=== PATIENT | female | born 1950 | race Asian ===

== ENCOUNTER 2020-07-11 17:42 | Observation (INO) | payer MEDICARE, SELFPAY ==
--- NOTE | ~2020-07-11 | MR_ITS ---
EXAMINATION: MR brain/brain stem wo/w con EXAM DATE: 07/12/2020 07:53 INDICATION: Aphasia. TECHNIQUE: Magnetic resonance imaging (MRI) of the brain/brain stem obtained without contrast. Sagit stew T1, axial diffusion, gradient echo (T2*), T1, T2, FLAIR sequences obtained. Patient was then inj ected with 13 cc intravenous Multihance contrast. Axial and coronal postcontrast T1 weighted sequence s obtained. Comparison is made to prior examination from 12/03/2017. FINDINGS: There are no areas of restricted diffusion to suggest acute infarction. There is no acute hemorrhage seen on the T2*, a hemosiderin sensitive sequence. No intraparenchymal brain mass lesion. Punctate old left pontine infarction. There is small old right occipital lobe cortical infarction. There are no extra-axial collections. Flow voids are seen in the cerebral arteries on the T2-weight ed sequences consistent with their expected patency. The orbits are unremarkable. Soft tissue is un remarkable. There are no areas of abnormal enhancement on the postcontrast images. There is no signi ficant interval change. IMPRESSION: 1. No acute intracranial findings. 2. Small old right occipital and punctate old left pontine reactions. Reviewed, dictated and finalized at location A.
--- NOTE | ~2020-07-11 | CT_ITS ---
EXAMINATION: CTA brain carotid DATE: 07/11/2020 19:14 INDICATION: Dizziness, occipital headache, a Mckenna TECHNIQUE: Computed tomographic angiography (CTA) of the head was performed without and with 100 mL O mnipaque-350 intravenous contrast. CTA of the neck was performed with intravenous contrast. The dose- length product was 1549.85 mGy-cm. Maximum intensity projection and volume rendered 3D-reconstruction s were created by the technologist on a separate workstation. Automated exposure control and iterativ e reconstruction technique were employed. COMPARISON: 12/03/2017 FINDINGS: HEAD CTA: There is no acute intraparenchymal hemorrhage. No evidence of mass lesion. No evidence of a cute infarction. There are old infarcts of the right occipital lobe, medial left frontal lobe, and le ft michelle. There is mild periventricular and subcortical hypodensity probably related to small vessel i schemic disease. There is mild prominence of the sulci and ventricles related to cerebral atrophy. In tracranial calcified cerebral atherosclerosis is noted. There are no extra-axial collections. There i s no mass effect or midline shift. The orbits and soft tissues are unremarkable. There is mild mucosa l thickening of the paranasal sinuses. There is no significant stenosis of the basilar artery or posterior cerebral arteries. There is no si gnificant stenosis of the intracranial internal carotid arteries or the anterior or middle cerebral a rteries. The anterior communicating artery and posterior communicating arteries are normal. There is no aneurysm. NECK CTA: There is a 1.6 cm right thyroid nodule.. The submandibular and parotid glands are symmetric . There is no lymphadenopathy. There are no masses identified. The airway is unremarkable. There is m ild cervical spondylosis. The superior mediastinum is unremarkable. There is 0% stenosis of the proximal right internal carotid artery relative to normal distal artery l umen diameter (NASCET criteria). There is 38% stenosis of the proximal left internal carotid artery r elative to normal distal artery lumen diameter. IMPRESSION: 1. Areas of prior infarction in the right occipital lobe, the left frontal lobe, and left michelle withou t acute intracranial abnormality. Normal head CTA. 2. 0% stenosis of the proximal right internal carotid artery relative to normal distal artery lumen d iameter (NASCET criteria). 3. 38% stenosis of the proximal left internal carotid artery relative to normal distal artery lumen d iameter. Reviewed, dictated and finalized at location A. IMPRESSION: 1. Areas of prior infarction in the right occipital lobe, the left frontal lobe , and left michelle without acute intracranial abnormality. Normal head CTA. 2. 0% stenosis of the proximal right internal carotid artery relative to normal distal artery lumen diameter (NASCET criteria). 3. 38% stenosis of the proximal left internal carotid artery relative to normal distal artery lumen diameter.
--- NOTE | ~2020-07-11 | XR_ITS ---
EXAMINATION: XR chest 1V portable INDICATION: Dizziness and slurred speech TECHNIQUE: Portable AP chest at 1830 hours COMPARISON: 12/03/2017 FINDINGS: The lungs are free of acute opacities. There is no pleural effusion or pneumothorax. The ca rdiomediastinal silhouette is normal. IMPRESSION: 1. No acute cardiopulmonary abnormality. Reviewed, dictated and finalized at location A.
[2020-07-11 17:45] VITALS: BP 119/71; PULSE 71; RESP 19; TEMP 36.7; O2SAT 98
[2020-07-11 17:48] LABS: Glucose Point of Care 165 (65-105)
--- NOTE | 2020-07-11 17:54 | ECG_ITS ---
Measurements Intervals [place] Rate: 66 P: 43 WA: 143 QRS: 50 QRSD: 89 T: 44 QT: 408 QTc: 429 Interpretive Statements SINUS RHYTHM Electronically Signed On 07-12-2020 7:47:00 CDT by Jayden Arenas D.O.
--- NOTE | 2020-07-11 18:11 | ED.GENADULT ---
HPI - General Adult General Chief complaint: Dizziness <Kina Mccord MD - Last Filed: 07/12/20 07:04> Stated complaint: dizzy <Kina Mccord MD - Last Filed: 07/12/20 07:04> Time Seen by Provider: 07/11/20 17:59 <Kina Mccord MD - Last Filed: 07/12/20 07:04> Source: patient <Kina Mccord MD - Last Filed: 07/12/20 07:04> Mode of arrival: EMS <Kina Mccord MD - Last Filed: 07/12/20 07:04> Limitations: no limitations <Kina Mccord MD - Last Filed: 07/12/20 07:04> History of Present Illness HPI narrative: This is a 70 year old Brazilian female with history of hypertension and CVA who presents for evaluation of a possible CVA. EMS reported that patient was talking to family and she developed expressive aphasia. Once EMS arrived, patient was not found to have aphasia or any new deficitis. Patient states she does not remember everything. She denies weakness, numbness, tingling, vomiting, chest pain or shortness of breath. She does reports posterior headache that started once the paramedics arrived. She reports some mild dizziness but she denies visual changes or nausea. She takes aspirin daily for her previous stroke. <Kina Mccord MD - Last Filed: 07/12/20 07:04> Related Data Home medications: Home Medications Medication Instructions Recorded Confirmed amlodipine 10 mg tablet 10 mg PO DAILY 03/20/19 07/11/20 atorvastatin 40 mg tablet 40 mg PO HS 03/20/19 07/11/20 escitalopram oxalate 20 mg tablet 10 mg PO DAILY 03/20/19 07/11/20 losartan 100 mg tablet 100 mg PO DAILY 03/20/19 07/11/20 vitamin B complex 1 tablet PO DAILY 03/20/19 07/11/20 zinc 50 mg tablet 50 mg PO DAILY 03/20/19 07/11/20 metoprolol tartrate 25 mg tablet 25 mg PO DAILY 06/12/19 07/11/20 aspirin 325 mg PO DAILY 07/11/20 07/11/20 <Kina Mccord MD - Last Filed: 07/12/20 07:04> Allergies/adverse reactions: Allergies Allergy/AdvReac Type Severity Reaction Status Date / Time No Known Drug Allergies Allergy Unknown Unknown Verified 07/11/20 18:01 SHELLFISH Allergy Unknown TONGUE AND Uncoded 07/11/20 18:01 LIP SWELLING <Kina Mccord MD - Last Filed: 07/12/20 07:04> Review of Systems Review of Systems: All systems reviewed & are unremarkable except as noted in HPI and below <Kina Mccord MD - Last Filed: 07/12/20 07:04> [facility] Past Medical History Medical History: Medical History (Updated 07/12/20 @ 05:18 by Karen Deluca DO) CVA (cerebral vascular accident) Old right occipital infarct 2015, 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, Diastolic dysfunction Echocardiogram April 2016: Impaired diastolic relaxation grade 1, ejection fraction 65-70, left atrial size within upper limits of normal High cholesterol Hypertension Osteoporosis Sleep apnea Has not use CPAP in many years Urge incontinence Vitamin D deficiency <Kina Mccord MD - Last Filed: 07/12/20 07:04> Surgical History Surgical History: Surgical History (Updated 07/12/20 @ 04:53 by Karen Deluca DO) History of bunionectomy Bilateral History of section X3 History of endometrial ablation History of medial meniscus repair of right knee (~08/2015) History of partial knee replacement (03/2016) Right Hx of cholecystectomy Status post trigger finger release Right hand <Kina Mccord MD - Last Filed: 07/12/20 07:04> Family History Family History: Family History (Updated 07/12/20 @ 04:58 by Karen Deluca DO) Father Lung cancer, Onset Age: 52 Mother Brain tumor, Onset Age: 52 Sibling Hypertension <Kina Mccord MD - Last Filed: 07/12/20 07:04> Social History Social History: Social History (Updated 07/12/20 @ 05:00 by Karen Deluca DO) Social History: The patient lives at home with her 2 daughters, son-in-law and grandson. She has been since 2016. She also has a 3rd daughter. Nu
[2020-07-11] MEDS: MECLIZINE HCL 25 MG TABLET PO (18:28)
[2020-07-11] MEDS: ONDANSETRON HCL ODT 4 MG TABLET PO (18:28)
[2020-07-11 18:56] LABS: Estimated Glomerular Filt Rate > 60
[2020-07-11 18:59] LABS: Basophils Absolute Auto 0.1 K/mm3 (0.0-0.1); Basophils Percent Auto 0.8 % (0.2-1.2); Eosinophils Absolute Auto 0.1 K/mm3 (0-0.3); Eosinophils Percent Auto 1.6 % (0-4.4); Hematocrit 37.4 % (37.0-47.0); Hemoglobin 12.6 g/dL (12.0-15.0); Immature Granulocyte Absolute 0.03 K/mm3 (0.00-0.031); Immature Granulocyte Percent A 0.4 % (0-0.5); Lymphocytes Absolute Auto 1.54 K/mm3 (0.9-3.2); Lymphocytes Percent Auto 20.6 % (18.3-44.2); Mean Corpuscular HGB Conc 33.7 g/dl (32-36); Mean Corpuscular Hemoglobin 28.5 pg (26-34); Mean Corpuscular Volume 84.6 fl (80-100); Mean Platelet Volume 10.5 fl (7.4-10.4); Monocytes Absolute Auto 0.6 K/mm3 (0.1-0.6); Monocytes Percent Auto 7.6 % (2.6-8.5); Neutrophils Absolute Auto 5.2 K/mm3 (1.3-6.7); Platelet Count Result 185 k/mm3 (150-375); Red Blood Count 4.42 M/mm3 (4.2-5.4); Red Cell Distribution Width 12.6 % (11.5-14.5); White Blood Count 7.5 K/mm3 (4.5-10.0)
[2020-07-11 19:12] LABS: INR 0.9; Prothrombin Time 12.2 Seconds (11.1-14.7)
[2020-07-11 19:15] LABS: Alanine Aminotransferase 19 U/L (4-35); Albumin Level 4.4 g/dL (3.5-5.1); Alkaline Phosphatase 71 U/L (38-126); Anion Gap 5 mmol/L (8-16); Aspartate Amino Transferase 22 U/L (14-36); Bilirubin,Total 0.5 mg/dL (0.2-1.3); Blood Urea Nitrogen 22 mg/dL (7-17); Calcium 8.9 mg/dL (8.4-10.2); Carbon Dioxide 29 mmol/L (22-30); Chloride 106 mmol/L (98-107); Estimated Glomerular Filt Rate > 60; Glucose 160 mg/dL (65-105); Potassium 4.3 mmol/L (3.4-5.0); Sodium 140 mmol/L (137-145)
[2020-07-11] MEDS: ASPIRIN 81 MG CHEWABLE TABLET 324 MG PO (20:00)
[2020-07-11 20:30] LABS: Add Urine Microscopic? NO; Appearance Urine Clear (Clear); Bilirubin Urine Negative (Negative); Blood Urine Negative (Negative); Color Urine Straw (Yellow); Glucose Urine UA Negative (Negative); Ketones Urine Negative (Negative); Leukocyte Esterase Ur Negative LEU/UL (Negative); Nitrate Urine Negative (Negative); Protein Urine Negative (Negative); Urobilinogen Urine Negative mg/dL (<2.0)
[2020-07-11 20:37] LABS: Specific Grav Ur > 1.060 (1.001-1.035)
[2020-07-11 20:49] VITALS: BP 138/90; PULSE 83; RESP 16; TEMP 36.4; O2SAT 99
[2020-07-11 21:02] VITALS: PULSE 78
--- NOTE | 2020-07-11 21:09 | ADMGEN ---
This patient, Ashley Ham, was admitted to Medical Room [facility]- at 2100. Patient/family oriented to hospital policies and general routines including ID bracelet, bed and alarms, visiting hours, pain management, procedures, bathroom and other care routines, personal items, smoking policy, room service/diet, and visiting hours. Information on how to activate the Rapid Response Team has been discussed. Patient/Family are encouraged to report perceived risks to care and to ask questions if they do not understand what they are told or what they should do.
[2020-07-11 21:13] VITALS: BMI 29.7
[2020-07-11 22:00] VITALS: BP 116/60; PULSE 67; RESP 21; TEMP 36.3; O2SAT 100
--- NOTE | 2020-07-11 23:04 | PM.IMHP ---
H&P: HPI History of Present Illness Date/Time: 07/11/20 23:15 Chief Complaint: Difficulty speaking Narrative: 70-year-old female with a past medical history of hypertension, CVAs and hyperlipidemia who presented to the ER due to neurologic changes. The patient reports that she went outside for her daily walk. When she was headed back towards her house she stops to talk to a neighbor at which time she developed expressive aphasia and was not able to move 1 side of her face. The patient herself does not x-ray remember the event. She reports that her daughter told her that she had these symptoms. She does remember that she was unable to stand up without holding on to the fence. She denies actually feeling dizzy but just was unable to stand up straight. She reports intermittent left occipital headaches that come and go and have been ongoing for years. She did have a mild occipital headache when EMS arrived on scene but she denies any headache at this time. She has been evaluated by Dr. Metzger in the past. The patient has residual right-sided weakness due to a prior CVA. By the time the patient had arrived in the ER her symptoms had resolved except for the headache. The patient reports having overactive bladder infrequent urinary incontinence. She denies any dysuria, hematuria, or fevers. Her last colonoscopy was about 10 years ago and was normal. She denies any hematochezia or melena. Review of Systems Review of Systems: Narrative: 12 systems were reviewed with pertinent positives and negatives per HPI. Except as documented in the HPI, all other systems were reviewed and are negative. 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, Diastolic dysfunction Echocardiogram April 2016: Impaired diastolic relaxation grade 1, ejection fraction 65-70, left atrial size within upper limits of normal High cholesterol Hypertension Osteoporosis Sleep apnea Has not use CPAP in many years Urge incontinence Vitamin D deficiency Surgical History Surgical History (Updated 07/12/20 @ 04:53 by Karen Deluca DO) History of bunionectomy Bilateral History of section X3 History of endometrial ablation History of medial meniscus repair of right knee (~08/2015) History of partial knee replacement (03/2016) Right Hx of cholecystectomy Status post trigger finger release Right hand Family History Family History (Updated 07/12/20 @ 04:58 by Karen Deluca DO) Father Lung cancer, Onset Age: 52 Mother Brain tumor, Onset Age: 52 Sibling Hypertension Social History Social History (Updated 07/12/20 @ 05:00 by Karen Deluca DO) Social History: The patient lives at home with her 2 daughters, son-in-law and grandson. She has been since 2016. She also has a 3rd daughter. Nursing staff reports that the patient ambulates with a walker. The patient smoked 1 or 2 cigarettes a day for about 20 years but quit smoking over 30 years ago. She does not drink alcohol use illicit substances. She has not drove since her 1st stroke in 2017. 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 Primary care physician: Dr. Joseph in [place] Code status: Full code Smoking status: Former smoker Alcohol intake: never Substance use: never Substance use type: does not use Gender identity (if verbalized by the patient): Female Spiritual care concerns: No Meds Home Medications and Allergies Home Medications Medication Instructions Recorded Confirmed Type amlodipine 10 mg tablet 10 mg PO DAILY 03/20/19 07/11/20 History atorvastatin 40 mg tablet 40 mg PO HS 03/20/19 07/11/20 History escitalopram oxalate 20 mg tablet 10 mg PO DAILY 03/20/19 07/11/20 History losartan 100 mg tablet 100 mg PO DAILY 03/20/19
[2020-07-12] VITALS: PULSE 68
--- NOTE | 2020-07-12 | ECHO_ITS ---
Patient Info Name: Ashley Ham Age: 70 years : 1950 Gender: Female Ht: 59 in Wt: 147 lbs BSA: 1.69 m2 HR: 67 bpm BP: 116 / 60 mmHg Heart Rhythm: Sinus Rhythm Technical Quality: Good Exam Date: 07/12/2020 10:56 AM Exam Location: [facility] Pulmonary Exam Room: 251 Patient Status: Inpatient Admit Date: 07/11/2020 Staff Ordering Physician: Karen Deluca DO Senior Financial Accountant: Zeina Metz RDCS Attending Provider: Marv Rainey PA-C Exam Type: CA echo doppler w bubble study Study Info Indications - HX/O CVA /TIA Complete two-dimensional, color flow and Doppler transthoracic echocardiogram is performed with agitated saline. Contrast/Agitated Saline Contrast/Ag. Saline: Agitated Saline Amount: 20.00 ml Administered By: Laurent Aguilar RN Existing IV Access: Yes IV Access Condition: patent with no signs of infiltration Summary 1. Left ventricular systolic function is normal, estimated at 65-70%. 2. There is no increased left ventricular wall thickness. 3. The left ventricular diastolic function is grade I diastolic dysfunction. 4. No intracardiac shunt at atrial level with injection of agitated saline with and without Valsalva. 5. There is no aortic valve stenosis. 6. There is trace mitral valve regurgitation. 7. The mitral valve annulus is mildly calcified. 8. There is trace tricuspid valve regurgitation. 9. No pulmonary hypertension, estimated pulmonary arterial systolic pressure is 24 mmHg. Recommendations * Consider transesophageal echocardiogram if clinically indicated given reported history of TIA/CVA. Left Ventricle Left ventricular chamber dimension is normal. Left ventricular systolic function is normal, estimated at 65-70%. There is no increased left ventricular wall thickness. The left ventricular diastolic function is grade I diastolic dysfunction. Right Ventricle Right ventricular chamber dimension is normal. Right ventricular systolic function is normal. Left Atria Left atrial chamber dimension is normal. Right Atria Right atrial chamber dimension is normal. Atrial Septum No intracardiac shunt at atrial level with injection of agitated saline with and without Valsalva. Aortic Valve The aortic valve is probable trileaflet. There is mild aortic valve sclerosis. There is no aortic valve stenosis. There is no aortic valve regurgitation. Pulmonic Valve The pulmonic valve is not well visualized. There is trace pulmonic regurgitation. Mitral Valve The mitral valve has normal leaflets. There is trace mitral valve regurgitation. The mitral valve annulus is mildly calcified. Tricuspid Valve The tricuspid valve leaflets are normal. There is trace tricuspid valve regurgitation. No pulmonary hypertension, estimated pulmonary arterial systolic pressure is 24 mmHg. Pericardium/Pleural The pericardium appears normal. There is trivial pericardial effusion. Inferior Vena Cava Normal inferior vena cava with >50% collapse upon inspiration consistent with normal right atrial pressure, 5 mmHg. Aorta The aortic root size at the sinus of Valsalva is normal. There is mild aortic atherosclerosis. Left Ventricular Outflow Tract Name Value Normal LVOT 2D
[2020-07-12 04:00] VITALS: PULSE 64
[2020-07-12 05:30] LABS: Basophils Percent Auto 0.6 % (0.2-1.2); Eosinophils Absolute Auto 0.2 K/mm3 (0-0.3); Eosinophils Percent Auto 2.7 % (0-4.4); Hematocrit 37.2 % (37.0-47.0); Hemoglobin 12.3 g/dL (12.0-15.0); Immature Granulocyte Absolute 0.01 K/mm3 (0.00-0.031); Immature Granulocyte Percent A 0.2 % (0-0.5); Lymphocytes Absolute Auto 1.84 K/mm3 (0.9-3.2); Lymphocytes Percent Auto 28.8 % (18.3-44.2); Mean Corpuscular HGB Conc 33.1 g/dl (32-36); Mean Corpuscular Hemoglobin 28.3 pg (26-34); Mean Corpuscular Volume 85.5 fl (80-100); Mean Platelet Volume 10.2 fl (7.4-10.4); Monocytes Absolute Auto 0.5 K/mm3 (0.1-0.6); Monocytes Percent Auto 8.4 % (2.6-8.5); Neutrophils Absolute Auto 3.8 K/mm3 (1.3-6.7); Neutrophils Percent Auto 59.3 % (45.5-73.1); Platelet Count Result 193 k/mm3 (150-375); Red Blood Count 4.35 M/mm3 (4.2-5.4); Red Cell Distribution Width 12.6 % (11.5-14.5); White Blood Count 6.4 K/mm3 (4.5-10.0)
[2020-07-12 05:49] LABS: Anion Gap 4 mmol/L (8-16); Blood Urea Nitrogen 19 mg/dL (7-17); Carbon Dioxide 31 mmol/L (22-30); Chloride 107 mmol/L (98-107); Estimated Glomerular Filt Rate > 60; Glucose 183 mg/dL (65-105); Potassium 3.4 mmol/L (3.4-5.0); Sodium 142 mmol/L (137-145)
[2020-07-12 06:00] VITALS: BP 108/66; PULSE 71; RESP 21; TEMP 36.1; O2SAT 100
[2020-07-12 08:17] VITALS: O2SAT 93
[2020-07-12] MEDS: ASPIRIN 81 MG ENTERIC TABLET PO (09:47)
[2020-07-12] MEDS: LOSARTAN POTASSIUM 100 MG TABLET PO (09:47)
[2020-07-12] MEDS: CLOPIDOGREL BISULFATE 75 MG TABLET PO (09:47)
[2020-07-12] MEDS: amLODIPine BESYLATE 5 MG TABLET 10 MG PO (09:47)
[2020-07-12] MEDS: METOPROLOL TARTRATE 25 MG TABLET PO (09:47)
[2020-07-12] MEDS: ZINC SULFATE 220 MG CAPSULE 50 MG PO (09:47)
[2020-07-12] MEDS: VITAMIN B COMPLEX CAPSULE 1 CAP PO (09:48)
[2020-07-12] MEDS: ESCITALOPRAM OXALATE 10 MG TABLET PO (09:48)
--- NOTE | 2020-07-12 12:53 | WPDNEURCNPN ---
Assessment and Plan Assessment and plan (1) Aphasia: Code(s): R47.01 - Aphasia Status: Acute (2) TIA (transient ischemic attack): Code(s): G45.9 - Transient cerebral ischemic attack, unspecified Status: Acute Additional Plan history of strokes in the past with new symptomatology lasting for short duration MRI suggestive of only small vessel disease would obtain the EEG as an outpatient the medication will be continued as such like to follow in the office after the EEG is done in 3 months Consult date: 07/12/20 Time Seen: 13:00 HPI: Ashley Ham is a 70 year old femaleHas been admitted to the hospital for the complaints of difficulties in his speech. In addition patient has ongoing history of in the past 1. Hyperlipidemia 2. Recurrent strokes. As per the information available at the time of visit to the emergency room she went outside for her daily walk was headed back to worse her house when she stopped talking to her neighbor and developed speech difficulties and was also unable to move her right side of the face she was unable to stand up without holding on to the fans though she was not dizzy but was definitely unable to stand up straight she also gave the history of intermittent left occipital headaches and she complained of mild occipital headache when EMS arrived on scene patient was noted to have residual right-sided weakness due to the previous cerebrovascular accident additionally she complained of overactive bladder and incontinent her past history was consistent with as mentioned before stroke, diastolic dysfunction, hypercholesterolemia, hypertension, osteoporosis, and sleep apnea. Evaluation up until now documented small right occipital punctate and old left pontine infarction but no new lesion . echocardiogram is pending. 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, Diastolic dysfunction Echocardiogram April 2016: Impaired diastolic relaxation grade 1, ejection fraction 65-70, left atrial size within upper limits of normal High cholesterol Hypertension Osteoporosis Sleep apnea Has not use CPAP in many years Urge incontinence Vitamin D deficiency Surgical History Surgical History History of bunionectomy Bilateral History of section X3 History of endometrial ablation History of medial meniscus repair of right knee (~08/2015) History of partial knee replacement (03/2016) Right Hx of cholecystectomy Status post trigger finger release Right hand Family History Family History Father Lung cancer, Onset Age: 52 Mother Brain tumor, Onset Age: 52 Sibling Hypertension Social History Social History Social History: The patient lives at home with her 2 daughters, son-in-law and grandson. She has been since 2016. She also has a 3rd daughter. Nursing staff reports that the patient ambulates with a walker. The patient smoked 1 or 2 cigarettes a day for about 20 years but quit smoking over 30 years ago. She does not drink alcohol use illicit substances. She has not drove since her 1st stroke in 2017. 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 Primary care physician: Dr. Joseph in [place] Code status: Full code Smoking status: Former smoker Alcohol intake: never Substance use: never Substance use type: does not use Gender identity (if verbalized by the patient): Female Spiritual care concerns: No Meds Home Medications and Allergies Home Medications
--- NOTE | 2020-07-12 13:03 | PM.DS ---
DS: Admitting Diagnosis Admitting Diagnosis Admitting Diagnosis: TIA DS: Discharge Diagnosis Discharge Diagnosis (1) TIA (transient ischemic attack): Code(s): G45.9 - Transient cerebral ischemic attack, unspecified Status: Acute Assessment and Plan: TIA symptoms with expressive aphasia and facial asymmetry that have since resolved. MRI shows no acute intracranial findings; small old right occipital and punctate old left pontine reactions noted. Echo results below; no evidence of intra-atrial shunting; mild valvular disease. Discussed with Dr. Metzger (Neurology) who agrees with aspirin 81 mg and Plavix 75 mg daily. Continue aspirin 81 mg and plavix 75 mg daily Continue home satin. F/u with Dr. Metzger as outpatient (2) Left carotid stenosis: Code(s): I65.22 - Occlusion and stenosis of left carotid artery Status: Acute Assessment and Plan: CTA head neck shows 38% stenosis of left carotid. Unable to appreciate bruit on exam today. Continue statin, aspirin, and Plavix as noted above F/u with PCP, possible vascular surgeon referral in future (3) Obstructive sleep apnea: Code(s): G47.33 - Obstructive sleep apnea (adult) (pediatric) Status: Acute Assessment and Plan: She has not worn CPAP in years as she is intolerant to mask Recommended f/u with PCP for possible outpatient sleep study for other mask options (4) Hypertension: Code(s): I10 - Essential (primary) hypertension Status: Acute Assessment and Plan: BP 100s sys continue home amlodipine, losartan, and metoprolol F/u with PCP DS: Summary Hospital Course Reason for hospitalization: TIA, aphasia, facial asymmetry (resolved) Hospital Course: Date of arrival: 07/11/20 Date of discharge: 07/12/20 Patient is a 70-year-old female with a past medical history of hypertension, CVAs and hyperlipidemia who presented to the ER due to neurologic changes including expressive aphasia and facial asymmetry. While in the ED, CTA head/neck showed no acute intracranial process and 38% stenosis of proximal left internal carotid artery. The patient arrived within 2 hours of her last known well, however she was not a candidate for tPA as her symptoms had resolved by the time she arrived in the ER. Patient admitted to the hospitalist service under this setting for further evaluation for possible acute CVA and further management/treatment. Dr. Metzger (Neruology) was consulted from the ED. Please see H&P for further details. After admission, Patient underwent Brain MRI which showed old infarcts seen on CTA head/neck and no acute intracranial findings. Echo performed showed no intracardiac shunt at atrial level, normal EF, and mild valvular disease. Dr. Metzger evaluated patient and recommended EEG as an outpatient and she was started on Plavix 75 mg daily and aspirin 81 mg daily (home aspirin 325 mg daily was discontinued). She was to follow up with Neurology as an outpatient. As above, her symptoms largely resolved by the time she arrived to the ED. Patient and family agreeable and comfortable with plan for discharge. Patient hemodynamically stable and in improved condition for discharge on 07/12 Status at Discharge Overall status at discharge: patient is progressing back to baseline Time Spent with Patient Time attestation: Total time spent providing and/or coordinating discharge services: Time spent: Greater than 30 minutes Exam Narrative: Exam Narrative: General: Patient sitting on side of bed in no acute distress. Finishing lunch. Daughter in room at time of visit HEENT: Normocephalic, EOMI, oral mucosa moist, PERRLA Cardiovascular: Rate and rhythm are regular. No notable murmur, rub, or gallop. Respiratory: Lungs clear to aus
[2020-07-12 14:05] VITALS: BP 110/60; PULSE 64; RESP 16; TEMP 36.1; O2SAT 99
== END 2020-07-12 16:00 | disposition home or self-care (01) ==
LOC: ANHED 20:17 → ANH2MED 20:19
PROVIDERS: Emergency Medicine; General Practice; Admitting Provider Internal Medicine; Emergency Provider Emergency Medicine; PCP Internal Medicine; Visit Provider Internal Medicine
DX: G45.9 Transient cerebral ischemic attack, unspecified (principal); R47.01 Aphasia; I69.351 Hemiplegia and hemiparesis following cerebral infarction affecting right dominant side; E78.5 Hyperlipidemia, unspecified; G47.33 Obstructive sleep apnea (adult) (pediatric); I10 Essential (primary) hypertension; Z87.891 Personal history of nicotine dependence
CPT/HCPCS: 36415; 70496; 70498; 70553; 71045; 80048; 80053; 81003; 82948; 85025; 85610; 92523; 93005; 93306; 96365; 96375; 97161; 97165; 99285; A9270; A9577; C8929; G0378; J0131; Q9967

== ENCOUNTER 2020-12-05 10:57 | Emergency (ER) | payer MEDICARE, SELFPAY ==
[2020-12-05] VITALS (10 sets, daily range): BP systolic 100–126; BP diastolic 64–81; PULSE 67–79; RESP 15–22; TEMP 35.8–36.6; O2SAT 96–100
--- NOTE | ~2020-12-05 | XR_ITS ---
EXAMINATION: XR knee RT min 4V DATE: 12/05/2020 11:32 INDICATION: Right knee pain TECHNIQUE: Four views of the right knee were obtained. COMPARISON: 06/12/2019 FINDINGS: Alignment is normal. No fracture or osteochondral lesion. Changes of medial compartment art hroplasty are again noted. There is a small joint effusion. Soft tissues are unremarkable. IMPRESSION: 1. No acute osseous abnormality. Reviewed, dictated and finalized at location A.
--- NOTE | ~2020-12-05 | US_ITS ---
EXAMINATION: US venous doppler [facility] EXAM DATE: 12/05/2020 14:33 INDICATION: Left calf pain. TECHNIQUE: Multiple grayscale, color flow and Doppler images of the left lower extremity deep venous system were obtained and reviewed. Comparison is made to prior examination from 05/21/2016. FINDINGS: The left common femoral, femoral and profunda veins demonstrate normal color flow, respirat ory variation, augmentation and compressibility. Compressibility, color flow confirmed within the le ft popliteal, posterior tibial, peroneal, and greater saphenous veins. IMPRESSION: 1. No left lower extremity deep venous thrombosis. Reviewed, dictated and finalized at location B.
--- NOTE | ~2020-12-05 | CT_ITS ---
EXAMINATION: CT brain wo con INDICATION: Head injury COMPARISON: 07/11/2020 TECHNIQUE: Standard unenhanced head CT. The dose-length product (DLP) was 605.33 mGy-cm. The mA was a djusted according to patient size. Iterative reconstruction technique was employed. FINDINGS: There is no acute intraparenchymal hemorrhage. No evidence of mass lesion. No evidence of a cute infarction. There are old infarcts of the right occipital lobe, medial left frontal lobe, and le ft michelle. There is mild periventricular and subcortical hypodensity probably related to small vessel i schemic disease. There is mild prominence of the sulci and ventricles related to cerebral atrophy. In tracranial calcified cerebral atherosclerosis is noted. There are no extra-axial collections. There i s no mass effect or midline shift. The orbits and soft tissues are unremarkable. The visualized sinus es and mastoid air cells are well aerated. IMPRESSION: 1. Areas of prior infarction without acute intracranial abnormality. 2. Age related findings. Reviewed, dictated and finalized at location A.
--- NOTE | ~2020-12-05 | XR_ITS ---
EXAMINATION: XR wrist RT min 3V, XR hand RT min 3V EXAM DATE: 12/05/2020 11:32 INDICATION: fall, deformity Limited range of motion, right wrist, hand pain. Initial encounter. TECHNIQUE: Right hand frontal, lateral and oblique projections obtained and reviewed. Right wrist fro ntal, frontal with ulnar deviation, oblique and lateral projections obtained and reviewed. There is no prior study for comparison. FINDINGS: Acute closed posttraumatic comminuted fracture of the right radial distal metaphysis with a bout 50% posterior displacement and 40 degrees of posterior angulation. Fracture fragments are extend ing into the distal radioulnar joint and the radiocarpal joint. There is acute closed posttraumatic u lnar styloid avulsion fracture. Scaphoid, metacarpal bones and phalanges unremarkable. IMPRESSION: 1. Right radial distal metaphyseal intra-articular fractures. Posterior angulation and displacement. 2. Ulnar styloid avulsion fracture. Reviewed, dictated and finalized at location B. IMPRESSION: 1. Right radial distal metaphyseal intra-articular fractures. Posterior angula tion and displacement. 2. Ulnar styloid avulsion fracture.
--- NOTE | ~2020-12-05 | XR_ITS ---
EXAMINATION: XR wrist RT 2V DATE: 12/05/2020 13:29 INDICATION: Postreduction distal right radial fracture. TECHNIQUE: Posteroanterior and lateral views of the right wrist were obtained. COMPARISON: none FINDINGS: Full reduction and splinting of the previously noted comminuted intra-articular distal right radial f racture. There is decreased dorsal angulation with now 11 degrees dorsal tilt of the distal articular surface. Residual mild radial displacement of the ulnar styloid avulsion fracture. No other fracture s identified. Mild polyarticular osteoarthritis with typical distribution at the radial aspect of the carpus and at multiple interphalangeal joints with distal predominance. IMPRESSION: 1. Decreased dorsal angulation of a comminuted intra-articular fracture of the distal right radius. 2. Mild radial displacement and ulnar styloid avulsion fracture. Reviewed, dictated and finalized at location A.
--- NOTE | 2020-12-05 11:18 | ED.FALL ---
HPI - Fall General Chief Complaint: Fall <Bety Estrada PA-C - Last Filed: 12/05/20 15:29> Stated Complaint: FALL, RIGHT WRIST INJURY <Bety Estrada PA-C - Last Filed: 12/05/20 15:29> Time Seen by Provider: 12/05/20 10:58 <Bety Estrada PA-C - Last Filed: 12/05/20 15:29> Source: patient and EMS <AMIRA Heart Last Filed: 12/05/20 15:29> Mode of arrival: EMS <AMIRA Heart Last Filed: 12/05/20 15:29> Limitations: no limitations <AMIRA Heart Last Filed: 12/05/20 15:29> History of Present Illness HPI Narrative: This is a 70 year old female that presents to the ER via EMS after a fall today with right wrist injury. Reports she has history of deficits from a previous stroke and is supposed to use a walker. She was not using her walker and lost her balance. Reports catching herself with her right wrist. Reports pain and swelling to the area with obvious deformity. Also reports some pain in the right knee. Reports hitting her chin on the floor. Denies loss of consciousness. She is not on any blood thinners. Also reports she has been having some pain in the left calf over the last couple of days. Denies vision changes, vomiting, or new numbness or weakness. <Bety Estrada PA-C - Last Filed: 12/05/20 15:29> Related Data Home Medications: Home Medications Medication Instructions Recorded Confirmed amlodipine 10 mg tablet 10 mg PO DAILY 03/20/19 07/11/20 atorvastatin 40 mg tablet 40 mg PO HS 03/20/19 07/11/20 escitalopram oxalate 20 mg tablet 10 mg PO DAILY 03/20/19 07/11/20 losartan 100 mg tablet 100 mg PO DAILY 03/20/19 07/11/20 vitamin B complex 1 tablet PO DAILY 03/20/19 07/11/20 zinc 50 mg tablet 50 mg PO DAILY 03/20/19 07/11/20 metoprolol tartrate 25 mg tablet 25 mg PO DAILY 06/12/19 07/11/20 <Bety Estrada PA-C - Last Filed: 12/05/20 15:29> Allergies/Adverse Reactions: Allergies Allergy/AdvReac Type Severity Reaction Status Date / Time No Known Drug Allergies Allergy Unknown Unknown Verified 07/11/20 18:01 SHELLFISH Allergy Unknown TONGUE AND Uncoded 07/11/20 18:01 LIP SWELLING <Bety Estrada PA-C - Last Filed: 12/05/20 15:29> Review of Systems Review of Systems: CONSTITUTIONAL: Denies fever EYES: Denies visual changes GASTROINTESTINAL: Denies vomiting MUSCULOSKELETAL: Reports joint pain and myalgia. Denies back pain NEUROLOGIC: Denies headache, or new numbness, or weakness. 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, Diastolic dysfunction Echocardiogram April 2016: Impaired diastolic relaxation grade 1, ejection fraction 65-70, left atrial size within upper limits of normal High cholesterol Hypertension Osteoporosis Sleep apnea Has not use CPAP in many years Urge incontinence Vitamin D deficiency <Bety Estrada PA-C - Last Filed: 12/05/20 15:29> Surgical History Surgical History: Surgical History History of bunionectomy Bilateral History of section X3 History of endometrial ablation History of medial meniscus repair of right knee (~08/2015) History of partial knee replacement (03/2016) Right Hx of cholecystectomy Status post trigger finger release Right hand <Bety Estrada PA-C - Last Filed: 12/05/20 15:29> Family History Family History: Family History Father Lung cancer, Onset Age: 52 Mother Brain tumor, Onset Age: 52 Sibling Hypertension <Bety Estrada PA-C - Last Filed: 0
--- NOTE | 2020-12-05 13:34 | PC.NURSE ---
40mg of Diprivan administered at 1308 via IVP 30mg of Diprivan administered at 1310 via IVP 30mg of Diprivan administered at 1312 via IVP All Diprivan administration administered by Dr. Hendricks.
[2020-12-05] MEDS: SODIUM CHLORIDE 0.9% IV 1,000 ML 999 ML (13:36)
[2020-12-05] MEDS: MORPHINE SULFATE (*CRX) 2 MG/ML INJ IV PUSH (13:39)
== END 2020-12-05 15:44 | disposition home or self-care (01) ==
PROVIDERS: Emergency Provider Emergency Medicine; PCP Internal Medicine
DX: S52.571A Other intraarticular fracture of lower end of right radius, initial encounter for closed fracture (principal); S52.611A Displaced fracture of right ulna styloid process, initial encounter for closed fracture; S09.90XA Unspecified injury of head, initial encounter; M79.662 Pain in left lower leg; I69.951 Hemiplegia and hemiparesis following unspecified cerebrovascular disease affecting right dominant side; E78.00 Pure hypercholesterolemia, unspecified; I10 Essential (primary) hypertension; M81.0 Age-related osteoporosis without current pathological fracture; G47.30 Sleep apnea, unspecified; E55.9 Vitamin D deficiency, unspecified; Z96.651 Presence of right artificial knee joint; Z87.891 Personal history of nicotine dependence; Z79.02 Long term (current) use of antithrombotics/antiplatelets; W18.39XA Other fall on same level, initial encounter
CPT/HCPCS: 25605; 70450; 73100; 73110; 73130; 73564; 93971; 99285; A4565; J2270; J7030

== ENCOUNTER 2020-12-15 01:27 | Day surgery (SDC) | payer MEDICARE, SELFPAY ==
[2020-12-12 10:18] VITALS: BMI 28.3
--- NOTE | 2020-12-12 15:55 | WPDANESEPPF ---
Anes - Initial Pre Proc Eval Procedure: Operation Date: 12/15/20 09:00 Proposed Procedures p Open Reduction Internal Fixation Right Distal Radius - Michael Hickman MD Date/Time: 12/12/20 15:55 Surgeon: Michael Hickman MD Pre Op Diagnosis: Right Distal Radius Fracture Patient Data Age: 70 Gender: F Height: 1.52 m Weight: 65.8 kg Allergies Allergy/AdvReac Type Severity Reaction Status Date / Time Iodine and Iodide Containing Allergy Severe Swelling Verified 12/15/20 07:48 Produc of Lip/Tongue/Throat shellfish derived Allergy Severe Swelling Verified 12/15/20 07:48 of Lip/Tongue/Throat Home Medications Medication Instructions Recorded Confirmed Type amlodipine 10 mg tablet 10 mg PO DAILY 03/20/19 12/15/20 History atorvastatin 40 mg tablet 40 mg PO QAM 03/20/19 12/12/20 History losartan 100 mg tablet 100 mg PO QPM 03/20/19 12/15/20 History vitamin B complex 1 tablet PO DAILY 03/20/19 12/12/20 History zinc 50 mg tablet 50 mg PO DAILY 03/20/19 12/12/20 History metoprolol tartrate 25 mg tablet 25 mg PO QPM 06/12/19 12/15/20 History clopidogrel 75 mg PO QAM #30 tablet 07/12/20 12/15/20 Rx hydrocodone-acetaminophen 1 tablet PO Q8H PRN #14 tablet 12/05/20 12/15/20 Rx acetaminophen [Tylenol Extra 1,000 mg PO Q6H PRN 12/12/20 12/12/20 History Strength] aspirin 81 mg PO QPM 12/12/20 12/15/20 History citalopram 40 mg PO QAM 12/12/20 12/15/20 History melatonin 5 mg PO HS PRN 12/12/20 12/12/20 History pantoprazole 40 mg PO QAM 12/12/20 12/12/20 History Patient hx anesthesia problems: none Family hx anesthesia problems: none PMFSH Past Medical History Medical History (Updated 12/15/20 @ 08:26 by Maximilian Garza DO) CVA (cerebral vascular accident) Old right occipital infarct 2015, 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, Right sided weakness Diastolic dysfunction Echocardiogram April 2016: Impaired diastolic relaxation grade 1, ejection fraction 65-70, left atrial size within upper limits of normal High cholesterol History of TMJ disorder Hypertension Osteoporosis Sleep apnea Has not use CPAP in many years TIA (transient ischemic attack) 07/23 Urge incontinence Vitamin D deficiency Surgical History Surgical History History of bunionectomy Bilateral History of section X3 History of endometrial ablation History of medial meniscus repair of right knee (~08/2015) History of partial knee replacement (03/2016) Right Hx of cholecystectomy Status post trigger finger release Right hand Family History Family History Father Lung cancer, Onset Age: 52 Mother Brain tumor, Onset Age: 52 Sibling Hypertension Social History Social History Social History: The patient lives at home with her 2 daughters, son-in-law and grandson. She has been since 2016. She also has a 3rd daughter. Nursing staff reports that the patient ambulates with a walker. The patient smoked 1 or 2 cigarettes a day for about 20 years but quit smoking over 30 years ago. She does not drink alcohol use illicit substances. She has not drove since her 1st stroke in 2017. 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 Primary care physician: Dr. Joseph in [place] Code status: Full code Smoking status: Never smoker Alcohol intake: never Alcohol use details: Socially Substance use: never Substance use type: does not use Living arrangements: with family Gender identity (if verbalized by the patient): Female Spiritual care concerns: No Anes - Eval Final PreProcedure Day of Procedure 12/12/20 15:55 Patient weight: overweight Heart: regular rate and rhythm Lungs: clear to auscultation and normal air movement Airway: Mallampati scale class III and other (TMJ - ja
--- NOTE | 2020-12-12 15:56 | WPDANESPNB ---
Anes - Peripheral Nerve Block Date/Time: 12/12/20 15:56 I have discussed with the patient/family/POA the placement of a peripheral nerve block for post-operative pain management, including associated risks, benefits, complications, and side effects. Alternative methods of post-operative analgesia were detailed. Questions were solicited and answers provided to the satisfaction of the patient/family/POA. Time-Out: A pre-procedural Time-Out was completed immediately before starting the procedure and confirmed: Patient Identification, Site, Procedure, Patient Position and the Availability of Requisite Equipment. Clinical Indications: Acute post-operative pain management requested by the operative surgeon. Nerve Block Insertion Note Anes-nerve block: supraclavicular Patient position: supine Skin prep: chlorhexidine Needle: 22 gauge, stimulating, insulated echogenic needle. Needle length: 50 mm Technique: ultrasound Injectate: bupivacaine 0.5% with epi 5 mcg/ml (30cc- no epi) Observations: tolerated well Complications: none
[2020-12-15] VITALS (10 sets, daily range): BP systolic 130–155; BP diastolic 60–88; PULSE 82–93; RESP 12–20; TEMP 36.1–36.9; O2SAT 92–98
--- NOTE | ~2020-12-15 | XR_ITS ---
EXAMINATION: XR surgery orthopedic DATE: 12/15/2020 10:21 INDICATION: ORIF distal right radial fracture TECHNIQUE: 2 fluoroscopic images of the right wrist were obtained during procedure performed by Dr. Levi nuno. Radiologist was not present for the imaging or procedure. The amount of fluoroscopy time used du ring this procedure was 2.4 minutes. COMPARISON: 12/05/2020 FINDINGS: Interval reduction and volar T plate and screw internal fixation of a comminuted intra-articular frac ture of the distal right radius. Alignment post reduction appears essentially anatomic with no discer nible fracture gap or incongruity at the articular surface. Minimal displacement unfixed avulsion fra cture across the base of the ulnar styloid process. The scapholunate angle appears increased suggesti ng possible tear of the scapholunate ligament with dorsal intercalated segment instability (DISI) alt michael positioning on the lateral projection is suboptimal for diagnostic assessment. Mild polyarticul ar osteoarthritis at the distal radioulnar, wrist, triscaphe and first carpal metacarpal joints. IMPRESSION: 1. Near-anatomic alignment post reduction and internal fixation of a comminuted intra-articular fract ure of the distal right radius. 2. Minimal displacement of an unfixed avulsion fracture of the ulnar styloid process. 3. Increased scapholunate angle suggesting scapholunate ligament insufficiency although positioning o n the lateral projection is suboptimal which decreases specificity. Reviewed, dictated and finalized at location A. IMPRESSION: 1. Near-anatomic alignment post reduction and internal fixation of a comminuted intra-articular fracture of the distal right radius. 2. Minimal displacement of an unfixed avulsion fracture of the ulnar styloid pr ocess. 3. Increased scapholunate angle suggesting scapholunate ligament insufficiency although positioning on the lateral projection is suboptimal which decreases sp ecificity.
[2020-12-15] MEDS: ACETAMINOPHEN 500 MG TABLET 1000 MG PO (08:03)
[2020-12-15] MEDS: LACTATED RINGERS 1,000 ML 30 ML IV CONT (08:20)
--- NOTE | 2020-12-15 08:24 | WPDHPUPDATE1 ---
History and Physical Update Update Date/Time: 12/15/20 08:24 History and Physical has been reviewed, including an updated exam of the patient. There are NO changes in the patient's condition. Risks, benefits, and alternatives have been discussed and questions answered. Patient agrees to proceed with procedure.
--- NOTE | 2020-12-15 08:25 | SUR.PREOP ---
0800- PER DR. TSE, UNWRAP RIGHT ARM AND WIPE WITH TYSHAWN WIPE IN PRE OP.
[2020-12-15] MEDS: KETOROLAC 15 MG/ML VIAL (*BKC) IV PUSH (08:27)
--- NOTE | 2020-12-15 08:34 | WPDHPUPDATE1 ---
History and Physical Update Update Date/Time: 12/15/20 08:34 History and Physical has been reviewed, including an updated exam of the patient. There are NO changes in the patient's condition. Risks, benefits, and alternatives have been discussed and questions answered. Patient agrees to proceed with procedure.
[2020-12-15] MEDS: ceFAZolin 2 GM/D5W 50 ML 2 GM/50 ML BAG IVPB (08:50)
--- NOTE | 2020-12-15 10:28 | P.OP_ITS ---
Procedure Note - Detailed Date of Procedure 12/15/20 Pre-op Diagnosis Right Distal Radius Fracture Post-op Diagnosis same Procedure Performed ORIF right distal radius Surgeon Michael Hickman MD [employer] [facility] [place] Anesthesia general Indications See H&P Description of Procedure The patient was identified and the proper side identified. She was taken back to the operating room, transferred to the or table positioning supine taking care to pad her torso and extremities. After general anesthetic induction and intubation, a nonsterile tourniquet was placed high on the right arm which was prepped and draped in the usual sterile fashion. The extremity was exsanguinated and tourniquet inflated to 250 mmHg remaining up for approximately 42 minutes. A volar longitudinal incision was made along the FCR tendon distally. The subcutaneous tissue was sharply dissected protecting neurovascular structures. The FCR tendon was released from its sheath and retracted ulnarly. This allowed for the deep fascia of the forearm to be divide d longitudinally in line with the incision. Care was taken to protect the volar compartment structures as well as the radial nerve and radial vascular structures. The pronator quadratus was elevated off of the distal radius allowing for inspection of the fracture site. The fracture fragments were disimpacted and able to be realigned virtually anatomically with fluoroscopic assistance. They were secured in this position with a right, short, narrow plate from the DVR set. The plate was applied with fluoroscopic visualization to avoid penetration of the joint and to ensure optimal hardware placement. Once the plate was secure the overall construct was assessed fluoroscopically on the AP and lateral views. The virtually anatomic reduction was held very nicely. The construct was stable. The wound was irrigated with a copious amount of sterile antibiotic solution. Skin edges were reapproximated with 2-0 Stratafix and tissue adhesive for the skin. Sterile dressing was applied. Siddhartha rniquet was released. A well-padded short-arm volar wrist splint was fashioned. The procedure was well tolerated. There were no known intraoperative complications. Estimated blood loss was negligible. Estimated Blood Loss 2 Tourniquet Time 42 Drains No Packing No Pathology none sent Complications No immediate complications Condition stable Disposition PACU
[2020-12-15] MEDS: oxyCODONE HCL (*CRX) 5 MG TAB IR PO (12:11)
== END 2020-12-15 13:02 | disposition home or self-care (01) ==
PROVIDERS: PCP Internal Medicine; Visit Provider Orthopaedic Surgery
PROC: (CPT 25575; principal; 2020-12-15 09:00)
DX: S52.571A Other intraarticular fracture of lower end of right radius, initial encounter for closed fracture (principal); W01.0XXA Fall on same level from slipping, tripping and stumbling without subsequent striking against object, initial encounter; I11.9 Hypertensive heart disease without heart failure; E78.00 Pure hypercholesterolemia, unspecified; G47.30 Sleep apnea, unspecified; M81.0 Age-related osteoporosis without current pathological fracture; E55.9 Vitamin D deficiency, unspecified; Z86.73 Personal history of transient ischemic attack (TIA), and cerebral infarction without residual deficits; Z79.82 Long term (current) use of aspirin
CPT/HCPCS: 25608; A9270; C1713; J0690; J1100; J1170; J1885; J2250; J2405; J2704; J3010; J7120

== ENCOUNTER 2021-03-02 11:00 | Outpatient (RCR) | payer MEDICARE, SELFPAY ==
--- NOTE | 2021-01-23 11:28 | PTOPEVAL ---
PHYSICAL THERAPY EVALUATION AND PLAN OF CARE 01-23-21 Thank you for referring Ashley Ham to [facility].? She is scheduled to be seen for therapy? 1 x/week for 4 weeks. Please review, sign, date and return this plan of care RICKY. I agree with and certify that the following plan of care is medically necessary. Referring Physician Date Attending Provider: Michael Hickman MD PT Outpatient Evaluation Start: 01/23/21 10:34 Past Medical History Source of Past Medical History Recalled from Previous Visit, Confirmed with Patient/Family Neurological History Hx Cerebrovascular Accident (CVA) Yes: 2017 HAS SLIGHT WEAKNESS RT SIDE Hx Transient Ischemic Attacks (TIA) Yes: 07/11/20 Cardiovascular History Hx Hypercholesterolemia Yes: meds Hx Hypertension Yes: meds Respiratory History Hx Sleep Apnea Yes: DOES NOT USE CPAP.CAN'T TOLERATE Gastrointestinal History Hx Cholecystectomy Yes Hx Gastroesophageal Reflux Disease Yes Genitourinary History Hx Other Genitourinary Disorders Yes: overactive bladder Musculoskeletal History Hx Arthritis Yes: GENERALIZED Hx Crutches or Walker Use Yes: BOTH Query Text:If Yes, Enter Crutches, Walker, or Both in the Comment Hx Joint Replacement Yes: RT PARTIAL KNEE REPLACEMENT Hx Orthopedic Surgery Yes: BILAT BUNIONECTOMY,RT HAND TRIGGER FINGER, RT KNEE SCOPE Hx Other Musculoskeletal Disorders Yes: RT DISTAL RADIUS FX- ORIF , wearing immobilizer on wrist Hematological History Hx Hematological Disorders No Significant History Endocrine History Hx Diabetes Yes: monitoring- may have, need to redo blood work HEENT History Hx HEENT Disorders No Significant History Integumentary History Hx Skin Disorders No Significant History Reproductive History Hx Section Yes: X 3 Hx Post Menopausal Yes Psychosocial History Hx Anxiety Yes Hx Depression Yes Pain History History of Any Previous or Ongoing No Significant History Instance of Pain Anesthesia History Hx Anesthesia Reactions No Significant History Evaluation Information Problem Diagnosis unsteady gait Onset Dec 2020 Subjective Information in Dec, walking and tripped Query Text:As Reported By Patient/ over side walk, fell and Family fractured R wrist; likes to walk, walks around the block 2x, every day; likes to push her grandson in
--- NOTE | 2021-02-03 15:13 | OTOPEVAL ---
OCCUPATIONAL THERAPY INITIAL EVALUATION Thank you for referring Ashley Ham to [facility] [place][Note 2].? The patient is scheduled to be seen for therapy? 1x/week for 4 weeks. Please review, sign, date and return this plan of care RICKY. I agree with and certify that the following plan of care is medically necessary. Referring Physician Date Referring Provider: Michael Hickman MD *OT Outpatient Evaluation Start: 02/03/21 14:32 Therapy Assessment Status Assessment Status Assessment Status Evaluation Outpatient Past Medical History Past Medical History Source of Past Medical History Recalled from Previous Visit, Confirmed with Patient/Family Neurological History Hx Cerebrovascular Accident (CVA) Yes: 2017 HAS SLIGHT WEAKNESS RT SIDE Hx Transient Ischemic Attacks (TIA) Yes: 07/11/20 Cardiovascular History Hx Hypercholesterolemia Yes: meds Hx Hypertension Yes: meds Respiratory History Hx Sleep Apnea Yes: DOES NOT USE CPAP.CAN'T TOLERATE Gastrointestinal History Hx Cholecystectomy Yes Hx Gastroesophageal Reflux Disease Yes Genitourinary History Hx Other Genitourinary Disorders Yes: overactive bladder Musculoskeletal History Hx Arthritis Yes: GENERALIZED Hx Crutches or Walker Use Yes: BOTH Query Text:If Yes, Enter Crutches, Walker, or Both in the Comment Hx Joint Replacement Yes: RT PARTIAL KNEE REPLACEMENT Hx Orthopedic Surgery Yes: BILAT BUNIONECTOMY,RT HAND TRIGGER FINGER, RT KNEE SCOPE Hx Other Musculoskeletal Disorders Yes: RT DISTAL RADIUS FX- ORIF , wearing immobilizer on wrist Hematological History Hx Hematological Disorders No Significant History Endocrine History Hx Diabetes Yes: monitoring- may have, need to redo blood work HEENT History Hx HEENT Disorders No Significant History Integumentary History Hx Skin Disorders No Significant History Reproductive History Hx Section Yes: X 3 Hx Post Menopausal Yes Psychosocial History Hx Anxiety Yes Hx Depression Yes Pain History History of Any Previous or Ongoing No Significant History Instance of Pain Anesthesia History Hx Anesthesia Reactions No Significant History Evaluation Information Problem Diagnosis Right distal radius fracture s/p ORIF Cause Fall Additional Evaluation Detail ORIF: 12/15/20 Subjective Information Patient reports that she has Query Text:As Reported By Patient/ returned to being independent Family
--- NOTE | 2021-03-02 09:26 | OTOPEVAL ---
OCCUPATIONAL THERAPY RE-EVALUATION AND DISCHARGE SUMMARY 03/02/21 OT re-evaluation completed today, 11 weeks post ORIF for right DRF. Patient demonstrating return of ROM and strength in the forearm and wrist with some residual naturopathic oncology provider weakness. She is currently independent with strengthening HEP and is in agreement with discharge. Thank you for referring Ashley Ham to [facility].? Please review, sign, date and return this D/C Note RICKY. I agree with and certify that the following plan of care is medically necessary. Referring Physician Date Referring Provider: Michael Hickman MD *OT Outpatient Evaluation Start: 02/03/21 14:32 Evaluation Information Problem Diagnosis Right distal radius fracture s/p ORIF Onset Dec 2020 Cause Fall Additional Evaluation Detail ORIF: 12/15/20 Subjective Information Patient reports return of Query Text:As Reported By Patient/ functional use of the right Family wrist/hand. 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 She does note some residual difficulties with opening a soda bottle. Pain Assessment Timing of Pain Assessment Timing of Pain Assessment Assessment Pain Scale Pain Scale Used Numeric (1 - 10) Self Report Pain Assessment Right Wrist(s) Reported Pain Level 0 Lowest Pain Intensity 0 Greatest Pain Intensity 5 Pain Aggravating Factors Exercise/Activity Pain Score Pain Score 0: Self Report Upper Extremity Range of Motion Elbow/Forearm Range of Motion Right Forearm Supination - Active 85 Forearm Pronation - Active 85 Elbow/Forearm Range of Motion Comments Elbow flex/ext are WNL. Wrist Range of Motion Right Wrist Flexion - Active 60 Wrist Extension - Active 60 Wrist Radial Deviation - Active 10 Wrist Ulnar Deviation - Active 35 Wrist Range of Motion Comments flexion improved from 50* extension improved from 45* RD/UD remained at 10*/35* respectively Finger Range of Motion Right Reason Not Measured WNL/Right Thumb Range of Motion Right Reason Not Measured WNL/Right Upper Extremity Muscle Strength Testing Elbow/Forearm Right Elbow Flexion Strength 4+ Good + Elbow Extension Strength 4+ Good + Forearm Pronation Strength 4+ Good + Forearm Supination Strength 4+ Good + Wrist Strength Right Wrist Flexion Strength 4+ Good + Wrist Extension Strength 4+ Good + Hand Jd Edwards Developer/Pinch Strength Assessment Hand Left Jd Edwards Developer Strength (lbs) 42 Right Jd Edwards Developer Strength (lbs) 36.67 9-Hole Peg Hand Test Hand
--- NOTE | 2021-03-02 11:40 | PTOPEVAL ---
PHYSICAL THERAPY DISCHARGE 03-02-21 Refer to the clinical summary below for her status today, compared to the initial evaluation. The goals were partially achieved. Discharge PT and to continue with HEP. Thank you for referring Ashley Ham to [facility].? Please review, sign, date and return this Discharge report RICKY. I agree with and certify that the following plan of care is medically necessary. Referring Physician Date Attending Provider: Michael Hickman MD Document 03/02/21 11:10 ELVIS (Rec: 03/02/21 11:40 ELVIS [id number]) Assessment Status Discharge Subjective Information Mrs. Ham reports: have not Query Text:As Reported By Patient/ had any falls, is using the Family cane only when go out and walk distances; is going shopping and zoroastrianism; doing leg exercises, doing everything need to do at home; agrees to discharge from PT. Pain Assessment Timing of Pain Assessment Timing of Pain Assessment Assessment Self Report Self Report Pain Level 0 Pain Score Pain Score 0: Self Report Lower Extremity Muscle Strength Testing General Lower Extremity Strength Gross Lower Extremity Strength functional strength of LE's: - supine SLR R 3# and L 4# x 20 reps; -side lying hip abduction R to 10' x 20 / L to 10' x 20 reps - sitting R ankle circles 20 reps with good control, DF to 5' x 20 reps; Transfer Assessment Floor Transfer Assessment Sit to Floor Transfer Ability Independent Floor to Sit Transfer Ability Independent Cues Needed for Floor Transfer None Balance Assessment Nathan Balance Assessment Sitting to Standing Independent w/out Hands Unsupported Stance Ability Safely- 2 minutes Sitting Unsupported, Feet on Floor Safely- 2 minutes Standing to Sitting Safely, Minimal Hand Use Transfer Ability Safely, Minimal Hand Use Unsupported Stance- Eyes Closed Safely, 10 seconds Unsupported Stance- Feet Together Independent, 1 minute Reaching Forward while Standing Confidently, 10 inches supervisor weaving Object From Floor Independent/Safe Look Behind Shoulder - Standing Shifts Weight Well Turning 360 Degrees Turns Bilateral, < 4 secs Unsupported Stance, Alternating Feet on (I)- 8 Steps in 20 secs Stair Unsupported Tandem Stance Achieves Tandem Unilateral Leg Stance Lifts Leg/Holds > 3 secs NATHAN Balance Evaluation Total Score (/56 54 points) Time Up Go (TUG) Timed Up and Go Test (TUG) (Seconds) 15 Assistive Devices
== END 2021-03-03 11:37 | disposition home or self-care (01) ==
LOC: ANHPT 11:00
PROVIDERS: PCP Internal Medicine; Visit Provider Orthopaedic Surgery
DX: R26.81 Unsteadiness on feet (principal)
CPT/HCPCS: 97018; 97110; 97161; 97165

== ENCOUNTER 2021-09-29 16:35 | Outpatient (CLI) | payer MEDICARE, SELFPAY ==
--- NOTE | ~2021-09-29 | MM_ITS ---
EXAMINATION: MM screening tita BI w alanna HISTORY: Screening TECHNIQUE: Craniocaudal and mediolateral oblique 3-D tomosynthesis images were obtained and synthetic 2-D images were generated. CAD analysis was submitted and interpreted. COMPARISON: Comparison to multiple prior studies sequentially, with oldest reviewed study dated 07/18. BREAST PARENCHYMAL COMPOSITION: The breasts are heterogenously dense, which may obscure small masses FINDINGS: There is no evidence of suspicious mass, calcification, or architectural distortion to sugg est malignancy in either breast. There has been no suspicious interval change. IMPRESSION: 1. No mammographic evidence of malignancy. 2. Recommend routine screening mammography in one year. BI-RADS Category 1: Negative Reviewed, dictated and finalized at location A.
== END 2021-09-29 16:36 | disposition home or self-care (01) ==
LOC: ANHIMG 16:37
PROVIDERS: PCP Internal Medicine; Visit Provider Internal Medicine
DX: Z12.31 Encounter for screening mammogram for malignant neoplasm of breast (principal)
CPT/HCPCS: 77063; 77067

== ENCOUNTER 2021-10-02 14:14 | Outpatient (CLI) | payer MEDICARE, SELFPAY ==
--- NOTE | ~2021-10-02 | MR_ITS ---
EXAMINATION: MR brain/brain stem wo con DATE: 10/02/2021 15:10 INDICATION: Headaches TECHNIQUE: Magnetic resonance imaging (MRI) of the brain and brainstem was performed without intraven ous contrast. Sequences included sagittal and axial T1-weighted SE, axial diffusion-weighted FS SE, a xial T2*-weighted GRE, axial 3D SWAN, axial T2-weighted FLAIR, and axial T2-weighted FSE. Apparent d iffusion coefficient (ADC) maps were created. COMPARISON: Head CT dated 12/05/2020 and brain MR dated 07/12/2020 FINDINGS: Again seen is a small region of encephalomalacia in the right occipital lobe consistent with chronic infarct. Tiny (infarct in the left michelle. There are no areas of restricted diffusion to suggest acute infarction. No intracranial hemorrhage or abnormal intracranial mass lesion. There are scattered area s of nonspecific increased T2-weighted signal intensity in the cerebral white matter, predominantly i nvolving the deep and periventricular white matter which is within normal limits for age. There are n o intraparenchymal signal abnormalities seen on the other pulse sequences. The ventricles are symmetr ic and normal in size. There are no abnormal extra-axial fluid collections. Flow voids are seen in th e cerebral arteries on the T2-weighted sequences consistent with their expected patency. Visualized o rbits and soft tissues are unremarkable. Mild mucosal thickening bilateral ethmoid sinuses with more prominent mucosal thickening the bilateral maxillary sinuses. IMPRESSION: 1. No acute intracranial process. 2. Normal appearance of old small right occipital infarct and old lacunar infarct at the left michelle. Reviewed, dictated and finalized at location A. IMPRESSION: 1. No acute intracranial process. 2. Normal appearance of old small right occipital infarct and old lacunar infar ct at the left michelle.
== END 2021-10-02 14:15 | disposition home or self-care (01) ==
LOC: ANHIMG 14:16
PROVIDERS: PCP Internal Medicine; Visit Provider Internal Medicine
DX: R51.9 Headache, unspecified (principal); Z86.73 Personal history of transient ischemic attack (TIA), and cerebral infarction without residual deficits
CPT/HCPCS: 70551

== ENCOUNTER 2022-02-09 08:01 | Inpatient (IN) | payer MEDICARE, SELFPAY ==
[2022-02-09] VITALS (16 sets, daily range): BP systolic 134–168; BP diastolic 62–77; PULSE 96–119; RESP 18–38; TEMP 37.3–37.8; O2SAT 91–97; BMI 31.4
--- NOTE | ~2022-02-09 | CT_ITS ---
EXAMINATION: CTA chest PE protocol DATE: 02/09/2022 11:15 INDICATION: Shortness of breath. Chest pain. Cough. TECHNIQUE: Computed tomography angiography (CTA) of the chest was performed with 100 mL Omnipaque-350 intravenous contrast timed to evaluate the pulmonary arteries. Coronal maximum intensity projection 3D-reconstructions were created by the technologist. Automated exposure control and iterative reconst ruction technique were employed. The dose-length product was 331.34 mGy-cm. COMPARISON: None. FINDINGS: There is minimal atelectasis in the lungs. No pleural effusion. The heart size is normal. T here are coronary artery calcifications. No pericardial effusion. There is no pulmonary embolus. Ther e is a small sliding hiatal hernia. There is moderate thoracic spondylosis. There is mild chronic ant erior wedging of T7 and T8 vertebral bodies. IMPRESSION: 1. No pulmonary embolus. Sensitivity is moderately decreased by motion artifact. 2. Small sliding hiatal hernia. Reviewed, dictated and finalized at location A. [employer] IMPRESSION: 1. No pulmonary embolus. Sensitivity is moderately decreased by motion artifact . 2. Small sliding hiatal hernia.
--- NOTE | ~2022-02-09 | XR_ITS ---
EXAMINATION: XR chest 2V DATE: 02/09/2022 08:46 INDICATION: Shortness of breath TECHNIQUE: AP and lateral views of the chest are obtained. COMPARISON: 07/11/2020 FINDINGS: The lungs are free of acute opacities. No pleural effusion or pneumothorax. The cardiomedia stinal silhouette is normal. There is moderate thoracic spondylosis. IMPRESSION: 1. No acute cardiopulmonary abnormality. Reviewed, dictated and finalized at location B. ONNEL AND PAYROLL TECHNICIAN
--- NOTE | ~2022-02-09 | US_ITS ---
EXAMINATION: US venous doppler LE RT DATE: 02/10/2022 08:42 INDICATION: Right lower limb pain. TECHNIQUE: Grayscale ultrasound images without and with compression and Doppler ultrasound images of the right lower extremity veins were obtained. COMPARISON: Ultrasound 05/21/2016 FINDINGS: The visualized portions of right common femoral vein, profunda (deep) femoral vein, femoral vein, pop liteal vein, peroneal veins, posterior tibial veins, and greater saphenous vein outflow are patent. IMPRESSION: 1. No deep venous thrombosis. Reviewed, dictated and finalized at location A. ORATE COMMUNICATIONS SPECIALIST
--- NOTE | ~2022-02-09 | XR_ITS ---
EXAMINATION: XR femur RT min 2V INDICATION: Right leg pain TECHNIQUE: Two views of the right femur are obtained on four radiographs. COMPARISON: 12/05/2020 FINDINGS: There are changes of medial compartment arthroplasty in the knee. Bone alignment is normal. There is no fracture. The soft tissues are unremarkable. IMPRESSION: 1. No acute osseous abnormality. Reviewed, dictated and finalized at location B. CLIMBER
--- NOTE | 2022-02-09 08:02 | ECG_ITS ---
Measurements Intervals [place] Rate: 118 P: 73 OR: 158 QRS: 79 QRSD: 84 T: 65 QT: 343 QTc: 482 Interpretive Statements SINUS TACHYCARDIA POSSIBLE RIGHT ATRIAL ENLARGEMENT BORDERLINE ST ABNORMALITY- ANTEROLAT/INF LEADS BASELINE WANDER- V6 ABNORMAL ECG COMPARED TO ECG 07/11/2020 17:55:15 SINUS TACHYCARDIA NOW PRESENT ST (T WAVE) DEVIATION NOW PRESENT Electronically Signed On 02-09-2022 8:54:39 [employer] by Jayden Arenas D.O.
--- NOTE | 2022-02-09 08:06 | ED.SOB ---
HPI - SOB/Dyspnea General Chief Complaint: Shortness of Breath/Dyspnea Stated Complaint: sob wheezing cough Time Seen by Provider: 02/09/22 08:05 Source: patient and family Mode of arrival: ambulatory Limitations: no limitations History of Present Illness HPI Narrative: Patient presents with coughing, shortness of breath and fever started last night. Grand son had history of GI flu. She denies any nausea, vomiting, diarrhea or chest pain. Sometimes chest pain with coughing. History of CVA, diabetes, hypertension, hyperlipidemia with depression Related Data Home Medications Medication Instructions Recorded Confirmed atorvastatin 40 mg tablet 40 mg PO QAM 03/20/19 02/09/22 losartan 100 mg tablet 100 mg PO QPM 03/20/19 02/09/22 vitamin B complex (B 1 tablet PO DAILY 03/20/19 02/09/22 Complex-Vitamin B12 tablet) metoprolol tartrate 25 mg tablet 25 mg PO QPM 06/12/19 02/09/22 acetaminophen 500 mg capsule 1,000 mg PO Q6H PRN Pain 12/12/20 02/09/22 aspirin 81 mg tablet,delayed 81 mg PO USEASDIRECTD 12/12/20 02/09/22 release melatonin 5 mg tablet 5 mg PO HS PRN Insomnia 12/12/20 02/09/22 amlodipine 10 mg tablet 10 mg PO DAILY 02/09/22 02/09/22 cholecalciferol (vitamin D3) 1,250 1,250 mcg PO WEEKLY 02/09/22 02/09/22 mcg (50,000 unit) tablet pantoprazole 40 mg tablet,delayed 40 mg PO DAILY 02/09/22 02/09/22 release Allergies Allergy/AdvReac Type Severity Reaction Status Date / Time shellfish derived Allergy Severe Swelling Verified 02/09/22 12:36 of Lip/Tongue/Throat Review of Systems Review of Systems: All systems reviewed & are unremarkable except as noted in HPI and below PMFSH Past Medical History Medical History (Updated 02/10/22 @ 00:08 by Nivia Deleon PA-C) CVA (cerebral vascular accident) Old right occipital infarct 2015, 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, Right sided weakness Diastolic dysfunction Echocardiogram April 2016: Impaired diastolic relaxation grade 1, ejection fraction 65-70, left atrial size within upper limits of normal High cholesterol History of TMJ disorder Hypertension Osteoporosis Sleep apnea Has not use CPAP in many years TIA (transient ischemic attack) 07/23 Type 2 diabetes mellitus Urge incontinence Vitamin D deficiency Surgical History Surgical History History of bunionectomy Bilateral History of section X3 History of endometrial ablation History of medial meniscus repair of right knee (~08/2015) History of partial knee replacement (03/2016) Right Hx of cholecystectomy Intra-articular fracture of distal end of right radius with volar angulation ORIF December 15, 2020 Status post trigger finger release Right hand Family History Family History Father Lung cancer, Onset Age: 52 Mother Brain tumor, Onset Age: 52 Sibling Hypertension Social History Social History Social History: The patient lives at home with her 2 daughters, son-in-law and grandson. She has been since 2016. She also has a 3rd daughter. Nursing staff reports that the patient ambulates with a walker. The patient smoked 1 or 2 cigarettes a day for about 20 years but quit smoking over 30 years ago. She does not drink alcohol use illicit substances. She has not drove since her 1st stroke in 2017. 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 Primary care physician: Dr. Joseph in [place] Code status: Full code Years smoked: 3 Smoking status: Former smoker Tobacco type: cigarettes Second hand tobacco smoke exposure: Yes Alcohol intake: current Alcohol use details: Socially Substance use: never Substance use type: does not use Other substance usage details: ALCOHOL ON SPECIAL OCCASSIONS Lack of Transportation: No
[2022-02-09 08:34] LABS: Alveolar/Arterial O2 Gradient 55.8 mmHg; Base Excess ABG -0.4 mEq/l (+/-2.0); Fractional Inspired Oxygen 21 %; HCO3 ABG 23.2 mEq/l (22.0-26.0); Oxygen Content ABG 17.4 %vol (16.0-22.0); Oxygen Saturation ABG 88.3 % (95.0-100.0); PO2 FiO2 Ratio Arterial Blood 2.48 %; Total Hemoglobin 14.2 g/dL (12.0-18.0); pH ABG 7.439 (7.350-7.450)
[2022-02-09 08:35] LABS: Basophils Percent Auto 0.4 % (0.2-1.2); Eosinophils Percent Auto 0.1 % (0-4.4); Hemoglobin 14.4 g/dL (12.0-15.0); Immature Granulocyte Absolute 0.04 K/mm3 (0.00-0.031); Immature Granulocyte Percent A 0.4 % (0-0.5); Lymphocytes Percent Auto 7.4 % (18.3-44.2); Mean Corpuscular HGB Conc 32.7 g/dl (32-36); Mean Corpuscular Hemoglobin 28.2 pg (26-34); Mean Corpuscular Volume 86.3 fl (80-100); Mean Platelet Volume 9.9 fl (7.4-10.4); Monocytes Absolute Auto 0.7 K/mm3 (0.1-0.6); Monocytes Percent Auto 6.9 % (2.6-8.5); Neutrophils Percent Auto 84.8 % (45.5-73.1); Platelet Count Result 218 k/mm3 (150-375); Red Cell Distribution Width 12.6 % (11.5-14.5); White Blood Count 9.4 K/mm3 (4.5-10.0)
[2022-02-09 08:36] LABS: Oxyhemoglobin 87.5 % THb (90.0-100.0)
[2022-02-09 08:37] LABS: Device ROOM AIR; Modified Allen's Test Pass; Site Drawn LEFT RADIAL
[2022-02-09 08:39] LABS: Lactic Acid Reflex 1.7 mmol/L (0.7-2.0)
[2022-02-09 08:42] LABS: CRP 1.3 mg/dL (<1.0); Partial Thromboplastin Time 29.8 SECONDS (22.3-36.8); Prothrombin Time 12.8 Seconds (11.1-14.7)
[2022-02-09 09:08] LABS: Basophils Absolute Auto 0.1 K/mm3 (0.0-0.1); Basophils Percent Auto 0.6 % (0.2-1.2); Eosinophils Percent Auto 0.1 % (0-4.4); Hemoglobin 14.1 g/dL (12.0-15.0); Immature Granulocyte Absolute 0.03 K/mm3 (0.00-0.031); Immature Granulocyte Percent A 0.4 % (0-0.5); Lymphocytes Absolute Auto 0.65 K/mm3 (0.9-3.2); Lymphocytes Percent Auto 7.8 % (18.3-44.2); Mean Corpuscular HGB Conc 32.8 g/dl (32-36); Mean Corpuscular Hemoglobin 28.2 pg (26-34); Mean Platelet Volume 9.7 fl (7.4-10.4); Monocytes Absolute Auto 0.4 K/mm3 (0.1-0.6); Neutrophils Absolute Auto 7.2 K/mm3 (1.3-6.7); Neutrophils Percent Auto 86.1 % (45.5-73.1); Platelet Count Result 198 k/mm3 (150-375); Red Cell Distribution Width 12.6 % (11.5-14.5); White Blood Count 8.4 K/mm3 (4.5-10.0)
[2022-02-09 09:18] LABS: Alanine Aminotransferase 20 U/L (6-35); Albumin Level 4.9 g/dL (3.5-5.1); Alkaline Phosphatase 122 U/L (38-126); Anion Gap 12 mmol/L (8-16); Aspartate Amino Transferase 23 U/L (14-36); Bilirubin,Total 0.8 mg/dL (0.2-1.3); Blood Urea Nitrogen 14 mg/dL (7-17); Carbon Dioxide 23 mmol/L (22-30); Chloride 103 mmol/L (98-107); Estimated Glomerular Filt Rate > 60; Glucose 180 mg/dL (65-110); Potassium 3.6 mmol/L (3.4-5.0); Sodium 138 mmol/L (137-145)
--- NOTE | 2022-02-09 09:25 | PC.NURSE ---
patient missed the cup when trying to provide urine sample.
[2022-02-09 09:44] LABS: Influenza A QL RT-PCR Negative (Negative); Influenza B QL RT-PCR Negative (Negative); RSV RNA, RT-PCR Negative (Negative); SARS-CoV-2 RNA PCR Negative
--- NOTE | 2022-02-09 11:47 | ADMGEN ---
This patient, Ashley Ham, was admitted to [facility] Surg Room 307-01. Patient/family oriented to hospital policies and general routines including ID bracelet, bed and alarms, visiting hours, pain management, procedures, bathroom and other care routines, personal items, smoking policy, room service/diet, and visiting hours. Information on how to activate the Rapid Response Team has been discussed. Patient/Family are encouraged to report perceived risks to care and to ask questions if they do not understand what they are told or what they should do.
[2022-02-09] MEDS: SODIUM CHLORIDE 0.9% IV 1,000 ML 75 ML IV CONT (12:27)
[2022-02-09] MEDS: ALBUTEROL SULFATE NEB 2.5 MG/3 ML INH 5 MG INHALATION (14:50)
--- NOTE | 2022-02-09 22:00 | PM.IMHP ---
H&P: HPI History of Present Illness Date/Time: 02/09/22 22:00 Chief Complaint: Shortness of breath, cough, and fever. Narrative: This is a 72-year-old female with history of stroke, diabetes, hypertension, and hyperlipidemia presented to the emergency department for evaluation of shortness of breath, cough, and fever for a couple of days. None of her family members have had similar symptoms though her grandson had GI symptoms last week. On arrival to the emergency department her temperature was 100?, heart rate was 118, and blood pressure was 157/71. Her labs were really unremarkable aside from a glucose of 180 any mild CRP elevation of 1.3. She tested negative for influenza, RSV, and SARs CoV 2 by PCR. Chest x-ray showed no acute cardiopulmonary abnormality. CTA of the chest showed no evidence of pulmonary embolism though sensitivity was moderately decreased by motion artifact. She has been placed on 2 liters nasal cannula as her ABG was consistent with hypoxemia with a showed a PO2 of 52 and an oxyhemoglobin of 87.5%. She has since been admitted for observation overnight due to ongoing tachycardia and hypoxemia. at the time my evaluation she is resting comfortably and feels a bit better now that her temperature has gone back down. In addition to the nonproductive cough and mild shortness of breath she has had some sinus congestion. She also complains of an aching discomfort in her left leg, mainly in the left thigh. She has not noticed any swelling or redness in the leg and she has not injured herself in any way. Review of Systems Review of Systems: 12 systems were reviewed. She has had a slight headache and sinus congestion. No significant sore throat. She denies chest pain and pleuritic pain. Some nausea but no vomiting. No diarrhea. No dysuria. Except as documented, all other systems were reviewed and are negative. 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, Right sided weakness Diastolic dysfunction Echocardiogram April 2016: Impaired diastolic relaxation grade 1, ejection fraction 65-70, left atrial size within upper limits of normal High cholesterol History of TMJ disorder Hypertension Osteoporosis Sleep apnea Has not use CPAP in many years TIA (transient ischemic attack) 07/23 Type 2 diabetes mellitus Urge incontinence Vitamin D deficiency Surgical History Surgical History History of bunionectomy Bilateral History of section X3 History of endometrial ablation History of medial meniscus repair of right knee (~08/2015) History of partial knee replacement (03/2016) Right Hx of cholecystectomy Intra-articular fracture of distal end of right radius with volar angulation ORIF December 15, 2020 Status post trigger finger release Right hand Family History Family History Father Lung cancer, Onset Age: 52 Mother Brain tumor, Onset Age: 52 Sibling Hypertension Social History Social History Social History: The patient lives at home with her 2 daughters, son-in-law and grandson. She has been since 2016. She also has a 3rd daughter. Nursing staff reports that the patient ambulates with a walker. The patient smoked 1 or 2 cigarettes a day for about 20 years but quit smoking over 30 years ago. She does not drink alcohol use illicit substances. She has not drove since her 1st stroke in 2017. 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 Primary care physician: Dr. Joseph in [place] Code status: Full code Years smoked: 3 Smoking status: Former smoker Tobacco type: cigarettes Second hand tobacco smoke exposure:
--- NOTE | 2022-02-09 23:02 | PCRCNOTE ---
Window of time for administration has passed. See next scheduled administration.
--- NOTE | 2022-02-09 23:23 | PC.NURSE ---
Pt sleeping during shift. Pt has some expiratory wheezing on auscultation. Pt has no reports of pain and verbalizes no needs at this time. Pt participated and contributed in plan of care for the shift. Will continue to monitor pt.
[2022-02-10] VITALS (9 sets, daily range): BP systolic 109–136; BP diastolic 60–67; PULSE 76–99; RESP 16–20; TEMP 36.8–37.3; O2SAT 92–98
[2022-02-10 01:46] LABS: Thyroid Stimulating Hormone Reflex 0.607 uIU/mL (0.465-4.68)
[2022-02-10 01:52] LABS: Appearance Urine Clear (Clear); Bilirubin Urine Negative (Negative); Blood Urine Trace-intact (Negative); Color Urine Yellow (Yellow); Glucose Urine UA Negative (Negative); Ketones Urine 1+ mg/dL (Negative); Leukocyte Esterase Ur Negative LEU/UL (Negative); Nitrate Urine Negative (Negative); Protein Urine 2+ mg/dL (Negative); Specific Grav Ur 1.025 (1.001-1.035); pH Urine 6.5 (5.0-9.0)
[2022-02-10 01:56] LABS: Bacteria Urine Trace /hpf; Mucus Urine Rare /lpf; Squamous Epithelial Cell Urine Rare /hpf (Few); WBC Urine 0-3 /hpf
[2022-02-10 02:32] LABS: Add Urine Microscopic? YES
[2022-02-10 03:19] LABS: Procalcitonin 0.1 ng/mL
[2022-02-10 06:37] LABS: Anion Gap 10 mmol/L (8-16); Blood Urea Nitrogen 11 mg/dL (7-17); Calcium 8.2 mg/dL (8.4-10.2); Carbon Dioxide 24 mmol/L (22-30); Chloride 104 mmol/L (98-107); Creatine Kinase 232 U/L (30-135); Estimated Glomerular Filt Rate > 60; Glucose 153 mg/dL (65-110); Magnesium 2.1 mg/dL (1.6-2.3); Potassium 3.3 mmol/L (3.4-5.0); Sodium 138 mmol/L (137-145)
[2022-02-10 08:10] LABS: Glucose Point of Care 169 mg/dl (65-105)
[2022-02-10] MEDS: amLODIPine BESYLATE 5 MG TABLET 10 MG PO (09:50)
[2022-02-10] MEDS: ASPIRIN 81 MG ENTERIC TABLET PO (09:50)
[2022-02-10] MEDS: CITALOPRAM HYDROBROMIDE 20 MG TABLET 40 MG PO (09:50)
[2022-02-10] MEDS: VITAMIN B COMPLEX CAPSULE 1 CAP PO (09:50)
[2022-02-10] MEDS: ENOXAPARIN 40 MG/0.4 ML SYRINGE SUB-Q (09:50)
[2022-02-10] MEDS: PANTOPRAZOLE 40 MG TABLET PO (09:50)
[2022-02-10] MEDS: ATORVASTATIN 40 MG TABLET PO (09:50)
[2022-02-10 12:05] LABS: Glucose Point of Care 165 mg/dl (65-105)
--- NOTE | 2022-02-10 12:40 | PM.IMPN ---
Progress Note: A&P Assessment and Plan (1) Upper respiratory infection, viral: Code(s): J06.9 - Acute upper respiratory infection, unspecified Status: Acute (2) Type 2 diabetes mellitus: Code(s): E11.9 - Type 2 diabetes mellitus without complications Status: Acute (3) Hypertension: Code(s): I10 - Essential (primary) hypertension Status: Acute (4) Hypoxemia: Code(s): R09.02 - Hypoxemia Status: Acute (5) Right thigh pain: Code(s): M79.651 - Pain in right thigh Status: Acute (6) Arterial blood gas abnormality: Code(s): R79.81 - Abnormal blood-gas level Status: Acute Plan The patient presented to the emergency department this morning for evaluation of shortness of breath, cough, and fever which started last night. She had a low-grade temperature on arrival and she has been mildly tachycardic since that time. Workup in the ER was pretty unremarkable with regards to her labs and chest x-ray and CT of the chest did not show any acute findings. ABG demonstrate hypoxemia and she has been placed on 2 liters nasal cannula with improvement in her shortness of breath. Oxygen will be weaned as tolerated. While her chest CTA did not show any obvious pulmonary embolism, it was moderately limited by respiratory motion artifact however PE seems less likely. She does complain of pain in her right thigh thus will obtain right lower extremity venous Doppler ultrasounds to rule out DVT. Pt is negative for influenza, RSV, and SARS-CoV-2 by PCR. Continue supportive care today with Oxygen prn, and breathing treatments I will add short course of steroids hopeful DC tomorrow Subjective Date/time seen: 02/10/22 12:40 72-year-old female with history of stroke, diabetes, hypertension, and hyperlipidemia presented to the emergency department for evaluation of shortness of breath, cough, and fever for a couple of days. None of her family members have had similar symptoms though her grandson had GI symptoms last week. Pt admitted with URI infection pt is very wheezy and has been on breathing treatments and oxygen plan to wean off oxygen and disc hrage tomorrow Review of Systems Review of Systems: Cough wheeze Exam Narrative: General: [place] lady with mild cough friendly pleasant Respiratory: Bilateral wheezy lungs . Cardiovascular: NSR Gastrointestinal: Abdomen is soft, nontender, and nondistended with positive bowel sounds. Extremities: No cyanosis, clubbing, or edema. Radial and pedal pulses intact. Musculoskeletal: No pain with active or passive range of motion of the right hip or knee. She has tenderness to palpation diffusely over the right mid anterior thigh. There is no palpable abnormality or visual abnormality. No knots or cords. Neurological: Alert. Cranial nerves 2-12 are grossly intact. Speech is clear. No facial asymmetry. No gross focal deficits to casual conversation. Psychiatric: Pleasant and cooperative with normal mood and affect. Objective Data Vital Signs Vital Signs: Vital Signs - 24 hr 02/09/22 14:00 02/09/22 14:51 02/09/22 14:51 Temperature 37.3 C Pulse Rate 101 H 100 Respiratory Rate 20 18 Blood Pressure 168/64 H Pulse Oximetry 96 95 Oxygen Delivery Nasal Cannula Oxygen Flow Rate 2 02/09/22 15:03 02/09/22 16:00 02/09/22 21:45 Temperature 37.4 C Pulse Rate 96 107 H 98 Respiratory Rate 18 20 Blood Pressure 134/62 Pulse Oximetry 97 Oxygen Delivery Oxygen Flow Rate 02/09/22 20:03 02/10/22 00:03 02/10/22 04:03 Temperature Pulse Rate 101 H 99 95 Respiratory Rate Blood Pressure Pulse Oximetry Oxygen Delivery Oxygen Flow Rate 02/10/22 05:43 Temperature 37.3 C Pulse Rate 91 Respiratory Rate 16 Blood Pressure 136/67 Pulse Oximetry 98 Oxygen Delivery Oxygen Flow Rate Intake/Output Intake/Output: Intake & Output 02/07/22 02/08/22 02/09/22 02/10/22 23:59 23:59 2
--- NOTE | 2022-02-10 13:37 | P.CDI_ITS ---
CDI Query Clarified Diagnosis Clarified Diagnosis: Clarification request Acute Respiratory failure with hypoxia Patient presents to Emergency room with shortness of breath, cough and PO2 noted on ABG < 60 at 52. Wheezing documented by Emergency room and nursing. RR documented as > 20, tachypnea. Patient currently receiving Medrol dosepak. DuoN eb ordered as needed. Please clarify status of Acute Respiratory Failure with hypoxia: * Present upon admission * Not present upon admission * Unable to determine.
[2022-02-10] MEDS: methylPREDNISolone (MEDROL) DOSEPACK 4 MG TABLETS PO ×4 (16:49→20:44)
[2022-02-10 16:54] LABS: Glucose Point of Care 136 mg/dl (65-105)
[2022-02-10 19:51] LABS: Glucose Point of Care 245 mg/dl (65-105)
[2022-02-10] MEDS: INSULIN ASPART (*BKC) 100 UNITS/ML SUB-Q (21:12)
[2022-02-11 00:02] VITALS: PULSE 75
[2022-02-11 04:02] VITALS: PULSE 66
[2022-02-11 06:00] VITALS: BP 121/69; PULSE 72; RESP 20; TEMP 36.4; O2SAT 97
[2022-02-11] MEDS: methylPREDNISolone (MEDROL) DOSEPACK 4 MG TABLETS PO ×2 (06:17→12:54)
--- NOTE | 2022-02-11 06:18 | PC.NURSE ---
Pt resting comfortably for the shift. Pt ambulated with her cane to the bathroom. Pt has no complaints and verbalizes no needs at this time. Will continue to monitor pt.
[2022-02-11 07:48] LABS: Glucose Point of Care 175 mg/dl (65-105)
[2022-02-11 09:00] VITALS: PULSE 73
[2022-02-11] MEDS: ATORVASTATIN 40 MG TABLET PO (09:10)
[2022-02-11] MEDS: ENOXAPARIN 40 MG/0.4 ML SYRINGE SUB-Q (09:11)
[2022-02-11] MEDS: amLODIPine BESYLATE 5 MG TABLET 10 MG PO (09:11)
[2022-02-11] MEDS: VITAMIN B COMPLEX CAPSULE 1 CAP PO (09:11)
[2022-02-11] MEDS: PANTOPRAZOLE 40 MG TABLET PO (09:11)
[2022-02-11] MEDS: POTASSIUM CHLORIDE 20 MEQ PACKET (FOR LIQUID) PO (09:11)
[2022-02-11] MEDS: CITALOPRAM HYDROBROMIDE 20 MG TABLET 40 MG PO (09:12)
--- NOTE | 2022-02-11 11:09 | PM.DS ---
DS: Admitting Diagnosis Discharge Date 02/11/22 Admitting Diagnosis acute bronchitis DS: Summary Hospital Course Hospital Course: This is a 72-year-old female with history of stroke, diabetes, hypertension, and hyperlipidemia presented to the emergency department for evaluation of shortness of breath, cough, and fever for a couple of days. On arrival to the emergency department her temperature was 100?, heart rate was 118, and blood pressure was 157/71. Her labs were really unremarkable aside from a glucose of 180 any mild CRP elevation of 1.3. She tested negative for influenza, RSV, and SARs CoV 2 by PCR. Chest x-ray showed no acute cardiopulmonary abnormality. CTA of the chest showed no evidence of pulmonary embolism though sensitivity was moderately decreased by motion artifact. She has been placed on 2 liters nasal cannula as her ABG was consistent with hypoxemia with a showed a PO2 of 52 and an oxyhemoglobin of 87.5%. she was admitted for acute bronchitis. She was started on nebulizer and steroid Dosepak. At this time she is stable and back to baseline. She has mild wheezing. She is not on oxygen. She is being discharged home with oral steroids for next 2 days. Time Spent with Patient Time attestation: Total time spent providing and/or coordinating discharge services: Exam Narrative: General: [place] lady with mild cough friendly pleasant Respiratory: Bilateral wheezy lungs . Cardiovascular: NSR Gastrointestinal: Abdomen is soft, nontender, and nondistended with positive bowel sounds. Extremities: No cyanosis, clubbing, or edema. Radial and pedal pulses intact. Musculoskeletal: No pain with active or passive range of motion of the right hip or knee. Neurological: Alert. Cranial nerves 2-12 are grossly intact. Speech is clear. No facial asymmetry. Psychiatric: Pleasant and cooperative with normal mood and affect. DS: Data Data Completed and Pending Labs on day of discharge: Labs from last 24 hours 02/11/22 02/10/22 02/10/22 07:31 19:48 16:52 POC Capillary Glucose 175 H 245 H 136 H 02/10/22 11:54 POC Capillary Glucose 165 H Preliminary micro results at discharge 02/09/22 08:59 Blood Culture - Preliminary Blood 02/09/22 08:59 Blood Culture - Preliminary Blood Discharge Plan Discharge Discharging Clinician: Christiano Tran Anticipated Discharge Date/Time: 02/11/22 11:06 Patient Disposition: Home, Self-Care Activity: august shower Diet: heart healthy Patient Instructions: Antibiotic Form, Hypoxia (GEN), Shortness of Breath (DC) Stand Alone Forms: General Discharge Information Follow-up/Referrals: Abran Lopez MD [Primary Care Provider] - Discharge Medications: New methylprednisolone 4 mg Tablets,Dose Pack 4 mg PO 2XD 2 Days Qty: 4 0RF Combivent Respimat 20-100 mcg/actuation mist 1 puff inhalation QID Qty: 4 0RF Rx Instructions: space evenly during waking hours Continued metoprolol tartrate 25 mg tablet 25 mg PO QPM metformin 1,000 mg tablet 1,000 mg PO DAILY Qty: 30 0RF atorvastatin 40 mg tablet 40 mg PO QAM losartan 100 mg tablet 100 mg PO QPM vitamin B complex [B Complex-Vitamin B12] Tablet 1 tablet PO DAILY citalopram 40 mg tablet 40 mg PO QAM Qty: 90 1RF aspirin 81 mg tablet,delayed release (DR/EC) 81 mg PO USEASDIRECTD Rx Instructions: Tuesday, Tuesday, Tuesday melatonin 5 mg Tablet 5 mg PO HS PRN (Reason: Insomnia) acetaminophen 500 mg Capsule 1,000 mg PO Q6H PRN (Reason: Pain) cholecalciferol (vitamin D3) 1,250 mcg (50,000 unit) Tablet 1,250 mcg PO WEEKLY Rx Instructions: Tuesday amlodipine 10 mg tablet 10 mg PO DAILY Rx Instructions: TAKE 1 TABLET BY MOUTH DAILY pantoprazole 40 mg tablet,delayed release (DR/EC) 40 mg PO DAILY Date of admission: 02/09/22 10:51 Primary Care Provider: Abran Lopez
[2022-02-11 12:00] VITALS: PULSE 77
[2022-02-11 12:00] LABS: Glucose Point of Care 188 mg/dl (65-105)
== END 2022-02-11 14:15 | disposition home or self-care (01) | DRG 203 ==
LOC: ANHED 08:35 → ANH3MEDSUR 11:22
PROVIDERS: Physician Assistant; Admitting Provider Chiropractor; Emergency Provider Emergency Medicine; PCP Family Medicine; Visit Provider Hospitalist
DX: J20.9 Acute bronchitis, unspecified (principal); I11.9 Hypertensive heart disease without heart failure; R09.02 Hypoxemia; R79.81 Abnormal blood-gas level; M79.651 Pain in right thigh; E11.9 Type 2 diabetes mellitus without complications; E78.5 Hyperlipidemia, unspecified; M81.0 Age-related osteoporosis without current pathological fracture; E55.9 Vitamin D deficiency, unspecified; G47.30 Sleep apnea, unspecified; Z20.822 Contact with and (suspected) exposure to COVID-19; Z86.73 Personal history of transient ischemic attack (TIA), and cerebral infarction without residual deficits; Z87.891 Personal history of nicotine dependence
CPT/HCPCS: 36415; 36600; 71046; 71275; 73552; 80048; 80053; 81001; 82550; 82805; 82948; 83036; 83605; 83735; 84145; 84443; 85025; 85610; 85730; 86140; 87040; 87502; 87634; 93005; 93971; 94640; 99285; A9270; J1650; J1815; J7030; Q9967; U0003; U0005

== ENCOUNTER 2022-07-13 12:49 | Outpatient (CLI) | payer MEDICARE, SELFPAY ==
[2022-07-13 14:16] LABS: Anion Gap 9 mmol/L (8-16); Blood Urea Nitrogen 18 mg/dL (7-17); Calcium 9.1 mg/dL (8.4-10.2); Carbon Dioxide 28 mmol/L (22-30); Chloride 101 mmol/L (98-107); Estimated Glomerular Filt Rate > 60; Glucose 110 mg/dL (65-110); Potassium 4.1 mmol/L (3.4-5.0); Sodium 138 mmol/L (137-145)
== END 2022-07-13 12:50 | disposition home or self-care (01) ==
LOC: ANHSURGERY 12:53
PROVIDERS: Anesthesiology; PCP Family Medicine; Visit Provider Orthopaedic Surgery
DX: Z01.818 Encounter for other preprocedural examination (principal); E11.9 Type 2 diabetes mellitus without complications
CPT/HCPCS: 36415; 80048

== ENCOUNTER 2022-07-19 00:31 | Day surgery (SDC) | payer MEDICARE, SELFPAY ==
--- NOTE | 2022-07-09 12:27 | PC.NURSE ---
Report to the Outpatient Waiting Room, entrance under the green pavilion located off [facility], at time _1000 on date __07/19/22 . Planned Procedure Time: _1200 . Time changes happen often and if your time is changed the preop area will call you the afternoon before. - You and your visitor will be asked to self-screen and do not enter if you have any COVID symptoms. - A mask is optional within the hospital at this time. Patients may have clear liquids (water, carbonated beverages, clear teas, apple juice) until 3 hours prior to surgery with a maximum of 20 ounces. - No food from midnight until time of surgery - Infants may have breast milk until 4 hours before surgery, infant formula 6 hours prior to surgery. - Children will be allowed to drink immediately following surgery. If applicable, please bring a bottle or sippy cup to assist with drinking. Juice, water, soda, and popsicles are readily available. For infants on formula, please bring formula the day of surgery. Pacifiers are allowed. Take the following medications with a SIP of water the morning of surgery: __AMLODIPINE,CITALOPRAM, DO NOT STOP ANY OF YOUR OTHER PRESCRIPTION MEDICATIONS PRIOR TO SURGERY ?EXCEPT THE FOLLOWING Medications to discontinue per physician __ALL VITAMINS/SUPPLEMENTS 3 DAYS PRE OP.LAST DOSE 07/15/22 Please no make-up, nail singaporean, hairspray, perfume, deodorant, or body powder the day of surgery. No jewelry (including any body piercings) or valuables the day of surgery, leave them at home. Please take a shower or bath the night before, or the morning of, surgery with an antibacterial soap. Wear comfortable, loose fitting clothing. Children are encouraged to wear pajamas. - Jewelry must be removed prior to entering the operating room. Rings and piercings that are not removed may be cut off. - The hospital will not accept responsibility for valuables. - Please leave all valuables, including medications, at home the day of surgery. If you are going home after surgery, a licensed local owner operator truck driver must drive you home. - NO public transportation without another adult if you receive anesthesia. - We recommend that an adult stay with you for 24 hours following discharge. - We also recommend that you do not drive, make important decision, drink alcoholic beverages, or take any drugs that were not prescribed by your health care provider for at least 24 hours after your discharge time. For Pediatric surgeries, we recommend two adults accompany the child home. Follow any additional instructions given to you from your surgeon. If you or anyone in your household have experienced Covid symptoms in the past week, please notify your surgeon or the nurse liaison at the phone number below for possible testing. Telephone instructions given to __Patient and asked if any additional questions and then verbalized understanding. Patient advised to call surgeon office or pre surgery nurse liaison [phone] if any additional questions.
[2022-07-09 12:36] VITALS: BMI 28.5
[2022-07-19] VITALS (7 sets, daily range): BP systolic 80–120; BP diastolic 53–70; PULSE 65–74; RESP 14–20; TEMP 36.4–36.9; O2SAT 94–99
--- NOTE | 2022-07-19 09:08 | WPDANESEPPF ---
Anes - Initial Pre Proc Eval Procedure: Operation Date: 07/19/22 12:00 Proposed Procedures p Left Third Trigger Finger Release - Michael Hickman MD Date/Time: 07/19/22 09:08 Surgeon: Michael Hickman MD Pre Op Diagnosis: left third trigger finger 07/19/22 Patient Data Age: 72 Gender: F Height: 1.52 m Weight: 66.25 kg Allergies Allergy/AdvReac Type Severity Reaction Status Date / Time shellfish derived Allergy Severe Swelling Verified 07/19/22 09:51 of Lip/Tongue/Throat Home Medications Medication Instructions Recorded Confirmed Type acetaminophen 500 mg capsule 1,000 mg PO Q6H PRN Pain 12/12/20 07/09/22 History aspirin 81 mg tablet,delayed 81 mg PO USEASDIRECTD 12/12/20 07/09/22 History release melatonin 5 mg tablet 5 mg PO HS PRN Insomnia 12/12/20 07/09/22 History metformin 1,000 mg tablet 1,000 mg PO DAILY #30 tabs 02/03/22 07/09/22 Rx citalopram 40 mg tablet 40 mg PO QAM #90 tabs 02/05/22 07/09/22 Rx atorvastatin 40 mg tablet 40 mg PO QAM #90 tabs 04/30/22 07/09/22 Rx cholecalciferol (vitamin D3) 1,250 1,250 mcg PO WEEKLY #14 tabs 04/30/22 07/09/22 Rx mcg (50,000 unit) tablet losartan 100 mg tablet 100 mg PO QPM #90 tabs 04/30/22 07/09/22 Rx pantoprazole 40 mg tablet,delayed 40 mg PO DAILY #90 tabs 04/30/22 07/09/22 Rx release metoprolol tartrate 25 mg tablet 25 mg PO QPM #90 tabs 05/04/22 07/09/22 Rx amlodipine 10 mg tablet See Rx Instructions .Route 06/21/22 07/09/22 Rx .COMPLEX #90 tabs ibuprofen 400 mg tablet 400 mg PO Q6H PRN Pain 07/09/22 07/09/22 History Patient hx anesthesia problems: none Family hx anesthesia problems: none Results Review: All pre-operative results and documents have been reviewed as part of the pre-operative evaluation. 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, Right sided weakness Diastolic dysfunction Echocardiogram April 2016: Impaired diastolic relaxation grade 1, ejection fraction 65-70, left atrial size within upper limits of normal High cholesterol History of TMJ disorder Hypertension Osteoporosis Sleep apnea Has not use CPAP in many years TIA (transient ischemic attack) 07/23 Trigger finger, left middle finger Type 2 diabetes mellitus Urge incontinence Vitamin D deficiency Surgical History Surgical History History of bunionectomy Bilateral History of section X3 History of endometrial ablation History of medial meniscus repair of right knee (~08/2015) History of partial knee replacement (03/2016) Right Hx of cholecystectomy Intra-articular fracture of distal end of right radius with volar angulation ORIF December 15, 2020 Status post trigger finger release Right fourth digit 2005 Family History Family History Father Lung cancer, Onset Age: 52 Mother Brain tumor, Onset Age: 52 Sibling Hypertension Social History Social History Social History: The patient lives at home with her 2 daughters, son-in-law and grandson. She has been since 2016. She also has a 3rd daughter. Nursing staff reports that the patient ambulates with a walker. The patient smoked 1 or 2 cigarettes a day for about 20 years but quit smoking over 30 years ago. She does not drink alcohol use illicit substances. She has not drove since her 1st stroke in 2017. 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 Primary care physician: Dr. Joseph in [place] Code status: Full code Smoking status: Never smoker Tobacco type: cigarettes Second hand tobacco smoke exposure: Yes Alcohol intake: current Substance use: never Substance use type: does not use Other substance usage
[2022-07-19] MEDS: ACETAMINOPHEN 500 MG TABLET 1000 MG PO (10:42)
[2022-07-19] MEDS: LACTATED RINGERS 1,000 ML 30 ML IV CONT (10:50)
[2022-07-19] MEDS: KETOROLAC 15 MG/ML VIAL (*BKC) IV PUSH (10:52)
[2022-07-19 10:58] LABS: Glucose Point of Care 126 mg/dl (65-105)
--- NOTE | 2022-07-19 11:29 | WPDHPUPDATE1 ---
History and Physical Update Update Date/Time: 07/19/22 11:29 History and Physical has been reviewed, including an updated exam of the patient. There are NO changes in the patient's condition. Risks, benefits, and alternatives have been discussed and questions answered. Patient agrees to proceed with procedure.
[2022-07-19] MEDS: ceFAZolin 2 GM/D5W 50 ML 2 GM/50 ML BAG IVPB (12:08)
[2022-07-19] MEDS: BUPivacaine HCL 0.25% PF 30 ML VIAL INFILTRATE (12:40)
--- NOTE | 2022-07-19 12:47 | W.PM.PROC2 ---
Procedure Note - Detailed Date of Procedure 07/19/22 Pre-op Diagnosis left third trigger finger 07/19/22 Post-op Diagnosis Same Procedure Performed left third trigger finger release Surgeon Michael Hickman MD Test Engineer [employer] [facility] Anesthesia General Description of Procedure The patient was identified and proper site identified. She was taken to the operating room and transferred to the OR table placing supine taking care to pad the torso and extremities. She underwent general anesthetic induction and intubation. A nonsterile tourniquet was placed high on the Left arm which was prepped and draped in the usual sterile fashion. Several cc of .25 % plain Marcaine was injected into the subcutaneous tissue over the A1 ilya of the left third digit. The extremity was exsanguinated and the tourniquet was inflated to 200 mmHg remaining up for about five minutes. A longitudinal incision was made over the A1 ilya. Subcutaneous tissue was bluntly dissected down to the ilya while protecting the neurovascular bundles. The A1 ilya was identified and then transected longitudinally in line with the incision and tendons. The tendons were delivered into the wound verifying the adequacy of the release. Hemostasis was carried out. The wound was irrigated with sterile saline. Skin edges were reapproximated with 4-0 nylon suture. Sterile dressing was applied. Tourniquet was released. She tolerated the procedure well and was transferred back to a cart, then taken to the recovery area in stable condition. There were no known intraoperative complications. Estimated blood loss was negligible. Perioperative antibiotics were administered. Estimated Blood Loss 0.5 Tourniquet Time 5 Drains No Packing No Pathology None sent Complications No immediate complications Condition Stable Disposition PACU [facility] Billing Surgery - Charge Forward: Surgery Billing ([id number])
[2022-07-19 13:00] LABS: Glucose Point of Care 119 mg/dl (65-105)
== END 2022-07-19 14:33 | disposition home or self-care (01) ==
PROVIDERS: PCP Family Medicine; Visit Provider Orthopaedic Surgery
PROC: (CPT 26055; principal; 2022-07-19 12:00)
DX: M65.332 Trigger finger, left middle finger (principal); I69.354 Hemiplegia and hemiparesis following cerebral infarction affecting left non-dominant side; I11.9 Hypertensive heart disease without heart failure; E55.9 Vitamin D deficiency, unspecified; M81.0 Age-related osteoporosis without current pathological fracture; G47.30 Sleep apnea, unspecified; E78.00 Pure hypercholesterolemia, unspecified; Z87.891 Personal history of nicotine dependence; Z79.84 Long term (current) use of oral hypoglycemic drugs
CPT/HCPCS: 26055; 36415; 80048; 82948; A9270; J0690; J1100; J1885; J2370; J2405; J2704; J3010; J7120

== ENCOUNTER 2023-02-03 11:41 | Outpatient (CLI) | payer MEDICARE, SELFPAY ==
--- NOTE | ~2023-02-03 | CT_ITS ---
EXAMINATION: CT brain wo con DATE: 02/03/2023 12:04 INDICATION: Headache. Dizziness. TECHNIQUE: Computed tomography (CT) of the head was performed without intravenous contrast. The mA wa s adjusted according to patient size. Iterative reconstruction technique was employed. The dose-lengt h product was 605.33 mGy-cm. COMPARISON: Head CT 12/05/2020, brain MRI 10/02/2021 FINDINGS: There is an old infarct in the michelle on the left. There is an old infarct in right occipital lobe. There is no intracranial hemorrhage, acute infarction, or abnormal intracranial mass lesion. T he ventricles are normal in size. There is mucosal thickening in the paranasal sinuses. The mastoid a ir cells are normal. IMPRESSION: 1. Old infarcts in the michelle and right occipital lobe. Reviewed, dictated and finalized at location E.
== END 2023-02-03 11:42 | disposition home or self-care (01) ==
PROVIDERS: PCP Family Medicine; Visit Provider Student in an Organized Health Care Education/Training Program
DX: R51.9 Headache, unspecified (principal); Z86.73 Personal history of transient ischemic attack (TIA), and cerebral infarction without residual deficits
CPT/HCPCS: 70450

== ENCOUNTER 2023-07-04 08:07 | Outpatient (CLI) | payer MEDICARE, SELFPAY ==
--- NOTE | ~2023-07-04 | DEXA_ITS ---
Bone Density Report Name: ROBERTO CARBAJAL Age: 73 Sex: Female Ethnicity: White Date of : 1950 Indication: osteopenia; secondary osteoporosis; Referring Provider: NANCI HOWARD Study: Bone densitometry was performed. Exam Date: July 04, 2023 Accession number: [id number] Bone Density: Region BMD T-score Z-score Classification AP Spine(L1-L4) 0.736 -2.8 -0.5 Osteoporosis Femoral Neck (Left) 0.506 -3.1 -1.1 Osteoporosis Total Hip (Left) 0.688 -2.1 -0.4 Osteopenia Femoral Neck (Right) 0.464 -3.5 -1.5 Osteoporosis Total Hip (Right) 0.581 -3.0 -1.3 Osteoporosis Total Hip Mean 0.635 -2.6 -0.9 Osteoporosis World Health Organization criteria for BMD impression classify patients as: Normal (T-score at or above -1.0), Osteopenia (T-score between -1.0 and -2.5), or Osteoporosis (T-score at or below -2.5). 10-year Fracture Risk: FRAX not reported because: Some T-score for Spine Total or Hip Total or Femoral Neck at or below -2.5 Previous Exams: Region Exam Age BMD T-score BMD Change BMD Change Date g/cm2 vs Baseline vs Previous AP Spine (L1-L4) 07/04/2023 73 0.736 -2.8 -0.060 (-7.6%) -0.060 (-7.6%) 07/19/2015 65 0.796 -2.3 Total Hip(Left) 07/04/2023 73 0.688 -2.1 -0.065 (-8.7%) -0.065 (-8.7%) 07/19/2015 65 0.754 -1.5 Total Hip(Right) 07/04/2023 73 0.581 -3.0 -0.129 (-18.2% -0.129 (-18.2% 07/19/2015 65 0.710 -1.9 *Denotes significance at 95% confidence level, LSC for AP Spine = 0.022 g/cm2, LSC for Total Hip = 0.027 g/cm2 # Denotes dissimilar scan types or analysis methods Clinical Information Provided by Patient: Has secondary osteoporosis Has used the following medications: Vitamin D Patient maximum height was 60 Menopause Age: 26 No regular weight bearing exercise Drinks caffeinated beverages Onset of menses at age 14 Number of children 3 Missed period for more than 6 months in a row Impression: The patient has osteoporosis, based on the Right Femoral Neck T-score. No significant bone loss was observed. Discussion: INCREASED RISK OF FRACTURE. BONE DENSITY IS UNDESIRABLY LOW AT ONE OR MORE SKELETAL SITES, CONSISTENT WITH POSTMENOPAUSAL OSTEOPOROSIS. This patient's lowest T-score meets the World Health Organization's (WHO) criteria for osteoporosis at one or more sites (T-score -2.5 or below). In untreated patients, the risk of osteoporotic fracture increases approximately two-fold for each 1.0 SD decrease in T-s
--- NOTE | ~2023-07-04 | MM_ITS ---
EXAMINATION: MM screening tita BI w alanna HISTORY: Screening TECHNIQUE: Craniocaudal and mediolateral oblique 3-D tomosynthesis images were obtained and synthetic 2-D images were generated. CAD analysis was submitted and interpreted. COMPARISON: Comparison to multiple prior studies sequentially, with oldest reviewed study dated 11/17. BREAST PARENCHYMAL COMPOSITION: Dense: The breasts are heterogeneously dense, which may obscure small masses FINDINGS: There is no evidence of suspicious mass, calcification, or architectural distortion to sugg est malignancy in either breast. There has been no suspicious interval change. IMPRESSION: 1. No mammographic evidence of malignancy. 2. Recommend routine screening mammography in one year. BI-RADS Category 1: Negative Reviewed, dictated and finalized at location A.
== END 2023-07-04 08:08 | disposition home or self-care (01) ==
LOC: ANHIMG 08:09
PROVIDERS: PCP Family Medicine; Visit Provider Physician Assistant
DX: Z12.31 Encounter for screening mammogram for malignant neoplasm of breast (principal); Z78.0 Asymptomatic menopausal state; M81.0 Age-related osteoporosis without current pathological fracture; M85.88 Other specified disorders of bone density and structure, other site
CPT/HCPCS: 77063; 77067; 77080

== ENCOUNTER 2024-02-23 01:10 | Day surgery (SDC) | payer MEDICARE, SELFPAY ==
[2024-02-15 08:28] VITALS: BMI 28.5
[2024-02-23 08:23] VITALS: BP 163/81; PULSE 83; RESP 20; TEMP 36.1; O2SAT 100; BMI 27.9
[2024-02-23] MEDS: LACTATED RINGERS 1,000 ML 150 ML IV CONT (08:38)
[2024-02-23 08:42] LABS: Glucose Point of Care 125 mg/dl (65-105)
--- NOTE | 2024-02-23 08:56 | PM.IMHP ---
H&P: HPI History of Present Illness Date/Time: 02/23/24 08:56 Chief Complaint: Dysphagia Narrative: the patient complains of difficulty swallowing liquids and solids for the past 2 years, lately getting worse over the past 3 months. She denies heartburn, regurgitation, nausea vomiting. Of note, she had a recent stroke after which this problem has become more noticeable but she denies regurgitation of fluid through her nose or cough after drinking liquids. 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, Right sided weakness Diastolic dysfunction Echocardiogram April 2016: Impaired diastolic relaxation grade 1, ejection fraction 65-70, left atrial size within upper limits of normal High cholesterol History of TMJ disorder Hypertension Osteoporosis Sleep apnea Has not use CPAP in many years TIA (transient ischemic attack) 07/23 Type 2 diabetes mellitus Urge incontinence Vitamin D deficiency Surgical History Surgical History History of bunionectomy Bilateral History of section X3 History of endometrial ablation History of medial meniscus repair of right knee (~08/2015) History of partial knee replacement (03/2016) Right Hx of cholecystectomy Intra-articular fracture of distal end of right radius with volar angulation ORIF December 15, 2020 Status post trigger finger release Right fourth digit 2006 Trigger finger, left middle finger Trigger finger release July 19, 2022 Family History Family History Father Lung cancer, Onset Age: 52 Mother Brain tumor, Onset Age: 52 Sibling Hypertension Social History Social History Social History: The patient lives at home with her 2 daughters, son-in-law and grandson. She has been since 2016. She also has a 3rd daughter. Nursing staff reports that the patient ambulates with a walker. The patient smoked 1 or 2 cigarettes a day for about 20 years but quit smoking over 30 years ago. She does not drink alcohol use illicit substances. She has not drove since her 1st stroke in 2017. 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 Primary care physician: Dr. Joseph in [place] Code status: Full code Smoking status: Never smoker Second hand tobacco smoke exposure: Yes Alcohol intake: never Substance use: never Substance use type: does not use Other substance usage details: ALCOHOL ON SPECIAL OCCASSIONS Lack of Transportation: No Lack of Food: Never True Current Housing: Decline to Answer Concerned About Future Housing: Decline to Answer Difficulty Paying Gas/Electric Bills: YES Difficulty Paying for Meds: Decline to Answer Currently Unemployed: No Education: Decline to Answer Difficulty w/ Childcare or Family Care: Decline to Answer Living arrangements: with family Additional living arrangements comments: LIVES WITH DAUGHTER Occupation/Education: retired Gender identity (if verbalized by the patient): Female Sexual Orientation (if Verbalized by the Patient): Straight or Heterosexual Spiritual care concerns: No Meds Home Medications and Allergies Home Medications Medication Instructions Recorded Confirmed Type acetaminophen 500 mg capsule 1,000 mg PO Q6H PRN Pain 12/12/20 02/23/24 History aspirin 81 mg tablet,delayed 81 mg PO USEASDIRECTD 12/12/20 02/23/24 History release ibuprofen 400 mg tablet 400 mg PO Q6H PRN Pain 07/09/22 02/23/24 History metformin 500 mg tablet See Rx Instructions .Route 05/09/23 02/23/24 Rx .COMPLEX #90 tabs citalopram 40 mg tablet 40 mg PO QAM #90 tabs 11/17/23 02/23/24 Rx ibandronate 150 mg tablet 150 mg PO MONTHLY #3 tabs 11/17/23 02/23/24 Rx pantoprazole 40 mg tablet,delayed 40 mg PO DAILY #90 tabs 11/28/23 02/23/24 Rx release losartan 100 mg tablet 100 mg PO QPM #90 tabs 12/20/23 02/23/24 Rx amlodipine 10 mg tablet 10 mg PO DAILY #90 tabs 01/30/24 02/23/24 Rx baclofen 5 mg tablet 5 mg PO BID #60 tabs 02/02/24 02/23/24 Rx rosuvastatin 40 mg tablet 40 mg PO DAILY #90 tabs 02/02/24 02/23/24 Rx cholecalciferol (vitamin D3) 1,250 1,250 mcg PO WEEKLY 02/15/24 02/23/24 History mcg (50,000 unit) capsule metoprolol tartrate 25 mg tablet 12.5 mg PO QPM 02/15/24 02/23/24 History Allergies Allergy/AdvReac Type Severity Reaction Status Date / Time shellfish derived Allergy Severe Swelling Verified 02/23/24 08:21 of Lip/Tongue/Throat Vital Signs Vital Signs - 24 hr 02/23/24 08:23 Temperature 97.0 F L Pulse Rate 83 Respiratory Rate 20 Blood Pressure 163/81 H Pulse Oximetry 100 Oxygen Delivery Room Air Exam Const: General: cooperative and healthy appearing Resp: Effort & Inspection: normal respiratory effort and able to speak in complete sentences Auscultation: clear to auscultation bilaterally Cardio: Rate: regular rate Rhythm: regular rhythm GI: Inspection: normal to inspection GI Palp: No No hepatosplenomegaly present Auscultation: normal bowel sounds Rectal Exam: deferred Skin: General skin exam: normal color Psych: Appearance: grossly normal Mental Status: mental status grossly normal Assessment and Plan Assessment and plan (1) Dysphagia: Code(s): R13.10 - Dysphagia, unspecified Status: Acute Assessment and Plan: Will determine if they are intramucosal obstructive lesions such as rings or webs. Will also take esophageal biopsies to rule out eosinophilic esophagitis. If these are negative, will proceed with high-resolution esophageal manometry.
--- NOTE | 2024-02-23 09:02 | WPDANESEPPF ---
Anes - Initial Pre Proc Eval Procedure: Operation Date: 02/23/24 09:30 Proposed Procedures p Esophagogastroduodenoscopy - Richard Root MD Date/Time: 02/23/24 09:02 Surgeon: Richard Root MD Pre Op Diagnosis: dysphagia, GERD, other symptoms and signs involv Patient Data Age: 74 Gender: F Height: 1.5 m Weight: 62.8 kg Last Vital Signs Temp 97.0 F L 02/23/24 08:23 Pulse 83 02/23/24 08:23 Resp 20 02/23/24 08:23 BP 163/81 H 02/23/24 08:23 Pulse Ox 100 02/23/24 08:23 O2 Del Method Room Air 02/23/24 08:23 Allergies Allergy/AdvReac Type Severity Reaction Status Date / Time shellfish derived Allergy Severe Swelling Verified 02/23/24 08:21 of Lip/Tongue/Throat Home Medications Medication Instructions Recorded Confirmed Type acetaminophen 500 mg capsule 1,000 mg PO Q6H PRN Pain 12/12/20 02/23/24 History aspirin 81 mg tablet,delayed 81 mg PO USEASDIRECTD 12/12/20 02/23/24 History release ibuprofen 400 mg tablet 400 mg PO Q6H PRN Pain 07/09/22 02/23/24 History metformin 500 mg tablet See Rx Instructions .Route 05/09/23 02/23/24 Rx .COMPLEX #90 tabs citalopram 40 mg tablet 40 mg PO QAM #90 tabs 11/17/23 02/23/24 Rx ibandronate 150 mg tablet 150 mg PO MONTHLY #3 tabs 11/17/23 02/23/24 Rx pantoprazole 40 mg tablet,delayed 40 mg PO DAILY #90 tabs 11/28/23 02/23/24 Rx release losartan 100 mg tablet 100 mg PO QPM #90 tabs 12/20/23 02/23/24 Rx amlodipine 10 mg tablet 10 mg PO DAILY #90 tabs 01/30/24 02/23/24 Rx baclofen 5 mg tablet 5 mg PO BID #60 tabs 02/02/24 02/23/24 Rx rosuvastatin 40 mg tablet 40 mg PO DAILY #90 tabs 02/02/24 02/23/24 Rx cholecalciferol (vitamin D3) 1,250 1,250 mcg PO WEEKLY 02/15/24 02/23/24 History mcg (50,000 unit) capsule metoprolol tartrate 25 mg tablet 12.5 mg PO QPM 02/15/24 02/23/24 History Laboratory Tests 02/23/24 08:28 POC Capillary Glucose 125 H mg/dl (65-105) Patient hx anesthesia problems: none Family hx anesthesia problems: none Results Review: All pre-operative results and documents have been reviewed as part of the pre-operative evaluation. 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, Right sided weakness Diastolic dysfunction Echocardiogram April 2016: Impaired diastolic relaxation grade 1, ejection fraction 65-70, left atrial size within upper limits of normal High cholesterol History of TMJ disorder Hypertension Osteoporosis Sleep apnea Has not use CPAP in many years TIA (transient ischemic attack) 07/23 Type 2 diabetes mellitus Urge incontinence Vitamin D deficiency Surgical History Surgical History History of bunionectomy Bilateral History of section X3 History of endometrial ablation History of medial meniscus repair of right knee (~08/2015) History of partial knee replacement (03/2016) Right Hx of cholecystectomy Intra-articular fracture of distal end of right radius with volar angulation ORIF December 15, 2020 Status post trigger finger release Right fourth digit 2006 Trigger finger, left middle finger Trigger finger release July 19, 2022 Family History Family History Father Lung cancer, Onset Age: 52 Mother Brain tumor, Onset Age: 52 Sibling Hypertension Social History Social History Social History: The patient lives at home with her 2 daughters, son-in-law and grandson. She has been since 2015. She also has a 3rd daughter. Nursing staff reports that the patient ambulates with a walker. The patient smoked 1 or 2 cigarettes a day for about 20 years but quit smoking over 30 years ago. She does not drink alcohol use illicit substances. She has not drove since her 1st stroke in 2016. 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 Primary care physician: Dr. Joseph in [place] Code status: Full code Smoking status: Never smoker Second hand tobacco smoke exposure: Yes Alcohol intake: never Substance use: never Substance use type: does not use Other substance usage details: ALCOHOL ON SPECIAL OCCASSIONS Lack of Transportation: No Lack of Food: Never True Current Housing: Decline to Answer Concerned About Future Housing: Decline to Answer Difficulty Paying Gas/Electric Bills: YES Difficulty Paying for Meds: Decline to Answer Currently Unemployed: No Education: Decline to Answer Difficulty w/ Childcare or Family Care: Decline to Answer Living arrangements: with family Additional living arrangements comments: LIVES WITH DAUGHTER Occupation/Education: retired Gender identity (if verbalized by the patient): Female Sexual Orientation (if Verbalized by the Patient): Straight or Heterosexual Spiritual care concerns: No Anes - Eval Final PreProcedure Day of Procedure 02/23/24 09:02 Patient weight: normal Heart: regular rate and rhythm Lungs: clear to auscultation Airway: Mallampati scale class II Neurological: alert and oriented Last oral intake: >/= 8 hours ASA classification: III Emergent: no Anesthetic plan: proceed Anesthesia type and monitoring: general GIVS and standard monitoring Results Review: All pre-operative results and documents have been reviewed as part of the pre-operative evaluation. CVA w r hemiparesis 2017, now w dysphagia. HTN, hyperlipidemia, DM. Informed Consent: The patient's anesthetic plan and its attendant risks and benefits were discussed with the patient/family/POA. Questions were solicited and answers provided to the satisfaction of the patient/family/POA.
[2024-02-23 09:29] VITALS: BP 125/73; PULSE 90; RESP 20; O2SAT 99
[2024-02-23 09:39] VITALS: BP 124/70; PULSE 78; RESP 21; O2SAT 99
[2024-02-23 09:49] VITALS: BP 145/86; PULSE 78; RESP 15; O2SAT 99
== END 2024-02-23 10:15 | disposition home or self-care (01) ==
PROVIDERS: PCP Family Medicine; Referring Provider Physician Assistant; Visit Provider Internal Medicine Gastroenterology
PROC: 0DJ08ZZ Inspection of Upper Intestinal Tract, Via Natural or Artificial Opening Endoscopic (ICD-10-PCS; CPT 43235; principal; 2024-02-23 09:30)
DX: K22.2 Esophageal obstruction (principal); K44.9 Diaphragmatic hernia without obstruction or gangrene; I11.0 Hypertensive heart disease with heart failure; I50.30 Unspecified diastolic (congestive) heart failure; E78.00 Pure hypercholesterolemia, unspecified; E11.9 Type 2 diabetes mellitus without complications; M81.0 Age-related osteoporosis without current pathological fracture; G47.30 Sleep apnea, unspecified; E55.9 Vitamin D deficiency, unspecified; I69.351 Hemiplegia and hemiparesis following cerebral infarction affecting right dominant side; Z79.84 Long term (current) use of oral hypoglycemic drugs
CPT/HCPCS: 43239; 43450; 82948; 88305; J2003; J2704; J7120

== ENCOUNTER 2024-05-01 12:42 | Emergency (ER) | payer MEDICARE, SELFPAY ==
--- NOTE | ~2024-05-01 | XR_ITS ---
EXAMINATION: XR chest 2V 05/01/2024 13:52 INDICATION: Cough PROCEDURE: 2 view chest COMPARISON: Comparison to multiple prior studies sequentially, with oldest reviewed study dated 05/2015. FINDINGS: The lungs are clear. The cardiomediastinal silhouette is within normal limits. There are no pleural effusions. There is no pneumothorax suspected. IMPRESSION: 1: NO ACUTE CARDIOPULMONARY DISEASE. Reviewed, dictated and finalized at location A. PRINT PRESS OPERATOR
--- NOTE | 2024-05-01 12:44 | ED_ITS ---
HPI - URI/Sore Throat General Chief Complaint: Upper Respiratory Infection Stated Complaint: Cough/Chest Congestion Time Seen by Provider: 05/01/24 13:27 Source: patient and RN notes reviewed Mode of arrival: ambulatory Limitations: no limitations History of Present Illness MD elicited complaint: cough Related Data Home Medications ?Medication ?Instructions ?Recorded ?Confirmed ?Last Taken ?Type acetaminophen 500 mg capsule 1,000 mg PO Q6H PRN Pain 12/12/20 02/23/24 Unknown History aspirin 81 mg tablet,delayed 81 mg PO USEASDIRECTD 12/12/20 02/23/24 02/22/24 History release cholecalciferol (vitamin D3) 1,250 1,250 mcg PO WEEKLY 02/15/24 02/23/24 Unknown History mcg (50,000 unit) capsule metoprolol tartrate 25 mg tablet 12.5 mg PO QPM 02/15/24 02/23/24 02/22/24 History Allergies Allergy/AdvReac Type Severity Reaction Status Date / Time shellfish derived Allergy Severe Swelling Verified 05/01/24 13:05 of Lip/Tongue/Throat Review of Systems Review of Systems: CONSTITUTIONAL: Denies malaise, chills, sweats, or fever. EYES: Denies visual changes, redness, or discharge. ENT: Reports rhinorrhea, congestion, sinus pain, otalgia and sore throat. CARDIOVASCULAR: Denies chest pain, palpitations, or edema. RESPIRATORY: Reports cough. Denies dyspnea. GASTROINTESTINAL: Denies abdominal pain, nausea, vomiting, diarrhea SKIN: Denies rash or itching. MUSCULOSKELETAL: Denies myalgia. NEUROLOGIC: Denies headache. 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, Right sided weakness Diastolic dysfunction Echocardiogram April 2016: Impaired diastolic relaxation grade 1, ejection fraction 65-70, left atrial size within upper limits of normal High cholesterol History of TMJ disorder Hypertension Osteoporosis Sleep apnea Has not use CPAP in many years TIA (transient ischemic attack) 07/23 Type 2 diabetes mellitus Urge incontinence Vitamin D deficiency Surgical History Surgical History History of bunionectomy Bilateral History of section X3 History of endometrial ablation History of medial meniscus repair of right knee (~08/2015) History of partial knee replacement (03/2016) Right Hx of cholecystectomy Intra-articular fracture of distal end of right radius with volar angulation ORIF December 15, 2020 Status post trigger finger release Right fourth digit 2006 Trigger finger, left middle finger Trigger finger release July 19, 2022 Family History Family History Father Lung cancer, Onset Age: 52 Mother Brain tumor, Onset Age: 52 Sibling Hypertension Social History Social History Social History: The patient lives at home with her 2 daughters, son-in-law and grandson. She has been since 2016. She also has a 3rd daughter. Nursing staff reports that the patient ambulates with a walker. The patient smoked 1 or 2 cigarettes a day for about 20 years but quit smoking over 30 years ago. She does not drink alcohol use illicit substances. She has not drove since her 1st stroke in 2017. 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 Primary care physician: Dr. Joseph in [place] Code status: Full code Smoking status: Never smoker Second hand tobacco smoke exposure: Yes Alcohol intake: never Substance use: never Substance use type: does not use Other substance usage details: ALCOHOL ON SPECIAL OCCASSIONS Lack of Transportation: No Lack of Food: Never True Current Housing: Decline to Answer Concerned About Future Housing: Decline to Answer Difficulty Paying Gas/Electric Bills: YES Difficulty Paying for Meds: Decline to Answer Currently Unemployed: No Education: Decline to Answer Difficulty w/ Childcare or Family Care: Decline to Answer Living arrangements: with family Additional living arrangements comments: LIVES WITH DAUGHTER Occupation/Education: retired Gender identity (if verbalized by the patient): Female Sexual Orientation (if Verbalized by the Patient): Straight or Heterosexual Spiritual care concerns: No Comments At time of signature, agree with nursing past medical, surgical, social and family history. There is no relevant family history pertinent to the presenting complaint Exam Narrative: GENERAL: Well-appearing, well-nourished, and in no acute distress. HEAD: Normocephalic EYES: PERRLA, conjunctivae clear ENT: Nares clear, turbinates edematous and erythematous, clear discharge. Mucous membranes moist. TM pearly maldonado with dull light reflex bilaterally; no tragal tenderness. Oropharynx not erythematous without lesions. Tonsils not enlarged and without exudate, no drooling, no hoarseness, no trismus, uvula midline. NECK: Supple. No lymphadenopathy CHEST: Clear to auscultation, breath sounds equal. No wheezing, rhonchi, rales, or stridor. No respiratory distress, speaks in full sentences. HEART: Regular rate and rhythm. No murmur heard. SKIN: Warm, dry, no rash. NEURO: Alert and oriented x3. PSYCH: Normal mood and affect Course Course Emergency Course: Patient is aware of diagnosis, understands and agrees to treatment plan. Anticipatory guidance given. Patient agrees to follow-up as directed and is aware of reasons to seek care at the emergency department. Portions of this record may have been created with voice recognition software Level of Care: Express Care Visit Vital Signs Vital signs: Reviewed. MDM - URI/Sore Throat MDM Narrative Medical decision making narrative: Differential diagnosis considered: Maradiaga virus, strep pharyngitis, allergic rhinitis, upper respiratory tract infection, sinusitis, rhinosinusitis, nasopharyngitis. viral pharyngitis, otitis media, otitis externa, pneumonia, bronchitis, viral cough syndrome, viral syndrome, and influenza. Exam findings show no acute concerns or changes; patient is non-toxic appearing and is in no distress. Patient is appropriate for outpatient treatment and follow-up. Lab Data Attestation: I reviewed the patient's lab results. Imaging Data My impression: Images reviewed, interpreted by radiologist, agree, see report. Radiologist's impression: EXAMINATION: XR chest 2V 05/01/2024 13:52 INDICATION: Cough PROCEDURE: 2 view chest COMPARISON: Comparison to multiple prior studies sequentially, with oldest reviewed study dated 10/04/2015. FINDINGS: The lungs are clear. The cardiomediastinal silhouette is within normal limits. There are no pleural effusions. There is no pneumothorax suspected. IMPRESSION: 1: NO ACUTE CARDIOPULMONARY DISEASE. Critical Care Time Critical Care Time Critical Care Time: No Discharge Plan Discharge Clinical Impression: Bronchitis Patient Disposition: Home, Self-Care Condition: Stable Instructions: Antibiotic Form, Acute Bronchitis (ED) Additional Instructions: Your x-ray looks normal Your rapid COVID and flu tests are negative Viral illness may last between 7-21 days; antibiotics do not cure viral illness and are NOT recommended at this time. Recommend antihistamine such as Benadryl at night time and Zyrtec or Luciana during the day Use inhaler as needed for cough, wheezing, shortness of breath or chest tightness. Also, recommend symptomatic treatment includes: rest, fluids, and increase hum idity of the air at home. Recommend Acetaminophen as directed on the bottle to reduce fever, pain, headache. Avoid smoking/second-hand smoke. Please schedule a follow-up visit with your personal physician for further evaluation and treatment within 3-5days. Including recheck and discussion of your blood pressure. If your symptoms persist, change or worsen significantly before you can contact your personal physician then please, without delay, go to the emergency department for further evaluation. Patient Language: Azerbaijani Prescriptions: New methylprednisolone [Medrol (José)] 4 mg tablets,dose pack See Rx Instructions .ROUTE .COMPLEX Qty: 21 0RF Rx Instructions: orally per package directions albuterol sulfate 90 mcg/actuation HFA aerosol inhaler 2 puff INHALATION QID PRN (Reason: shortness of breath or wheezing) Qty: 8.5 0RF No Action rosuvastatin 40 mg tablet 40 mg PO DAILY Qty: 90 3RF ibandronate 150 mg tablet 150 mg PO MONTHLY Qty: 3 3RF Rx Instructions: TAKES FIRST OF THE MONTH aspirin 81 mg tablet,delayed release (DR/EC) 81 mg PO USEASDIRECTD Rx Instructions: Tuesday--TAKES WEEKLY acetaminophen 500 mg Capsule 1,000 mg PO Q6H PRN (Reason: Pain) cholecalciferol (vitamin D3) 1,250 mcg (50,000 unit) capsule 1,250 mcg PO WEEKLY Rx Instructions: FRIDAYS metoprolol tartrate 25 mg tablet 12.5 mg PO QPM metformin 500 mg tablet See Rx Instructions .ROUTE .COMPLEX Qty: 90 5RF Rx Instructions: 2 po qam, then 1 po qpm; citalopram 40 mg tablet 40 mg PO QAM Qty: 90 1RF pantoprazole 40 mg tablet,delayed release (DR/EC) 40 mg PO DAILY Qty: 90 1RF losartan 100 mg tablet 100 mg PO QPM Qty: 90 1RF amlodipine 10 mg tablet 10 mg PO DAILY Qty: 90 1RF Follow-up/Referrals: Abran Lopez MD [Primary Care Provider] - Time of Disposition: 13:37
[2024-05-01 13:11] LABS: EDCOVIDSCREEN Negative (Negative); EDINFLUASCREEN Negative (Negative); EDINFLUBSCREEN Negative (Negative)
[2024-05-01 13:36] VITALS: BP 146/76; PULSE 93; RESP 16; TEMP 37.1; O2SAT 95
== END 2024-05-01 14:14 | disposition home or self-care (01) ==
PROVIDERS: Emergency Provider Nurse Practitioner; PCP Family Medicine
DX: J40 Bronchitis, not specified as acute or chronic (principal); Z20.822 Contact with and (suspected) exposure to COVID-19; I10 Essential (primary) hypertension; E11.9 Type 2 diabetes mellitus without complications; Z79.84 Long term (current) use of oral hypoglycemic drugs; E78.00 Pure hypercholesterolemia, unspecified; M81.0 Age-related osteoporosis without current pathological fracture; E55.9 Vitamin D deficiency, unspecified; Z86.73 Personal history of transient ischemic attack (TIA), and cerebral infarction without residual deficits; Z79.82 Long term (current) use of aspirin
CPT/HCPCS: 71046; 87426; 87804; 99213; G0463

== ENCOUNTER 2025-02-21 09:55 | Outpatient (CLI) | payer MEDICARE, SELFPAY ==
--- NOTE | ~2025-02-21 | XR_ITS ---
EXAMINATION: XR knee RT min 4V, 02/21/2025 10:05 CLINICAL RESEARCHER HISTORY: CHRONIC R KNEE PAIN WORSENING AFTER FALL 4 DAYS AGO COMPARISON: No comparisons available. Findings: No acute fracture or malalignment. Medial knee arthroplasty appears intact. Moderate degenerative changes of the remaining joint spaces with small effusion. Soft tissues unremarkable. Impression: No acute fracture or malalignment. Reviewed, dictated and finalized at location P. ICAL RESEARCHER Impression: No acute fracture or malalignment.
== END 2025-02-21 09:56 | disposition home or self-care (01) ==
PROVIDERS: PCP Family Medicine; Visit Provider Physician Assistant
DX: M25.561 Pain in right knee (principal); W19.XXXA Unspecified fall, initial encounter
CPT/HCPCS: 73564